=== PATIENT | male | born 1940 | race Caucasian/White ===

== ENCOUNTER 2017-02-21 10:54 | Inpatient (IN) | payer OTHER ==
[~2017-02-21] VITALS: Ht 177.8 cm; Wt 67.1 kg
[~2017-02-21 10:54] MED LIST: ASPIRIN81 M1; CLOPIDOGREL75 MG; SIMVASTATIN40 MG
[2017-02-21 12:49] LABS: BILIRUBIN,URINE NEGATIVE (NEGATIVE); KETONES,URINE NEGATIVE (NEGATIVE); LEUKOCYTE ESTERASE ,URINE TRACE (NEGATIVE); NITRITE,URINE NEGATIVE (NEGATIVE); URINE UROBILINOGEN 0.2 mg/dL (0.2 - 1)
[2017-02-21 12:53] LABS: CLARITY,URINE HAZY (CLEAR); COLOR,URINE YELLOW (YELLOW); PROTEIN,URINE DIPSTICK 1+ (NEGATIVE)
[2017-02-21 13:04] LABS: AMORPHOUS SEDIMENT,URINE MODERATE (FEW); BACTERIA,URINE RARE /HPF; EPITHELIAL CELLS,URINE MODERATE /LPF
[2017-02-21 13:05] LABS: CALCIUM OXALATE CRYSTALS,UR FEW (FEW); MUCUS,URINE FEW (RARE)
[2017-02-21 16:25] LABS: BASOPHILS % 0.5 % (0.0-1.0); EOSINOPHILS # (AUTO) 0.3 (0.0-0.4); EOSINOPHILS % 3.4 % (0.0-6.0); HEMATOCRIT 40.3 % (38.2-49.6); HEMOGLOBIN 12.9 g/dL (14.0-18.0); LYMPHOCYTES # (AUTO) 2.4 (1.0-3.2); LYMPHOCYTES % 31.3 % (18.0-39.1); MEAN CORPUSCULAR VOLUME 93.7 fL (81-99); MONOCYTES # (AUTO) 0.7 (0.2-0.8); MONOCYTES % 9.2 % (4.4-11.3); NEUTROPHILS # (AUTO) 4.3 (2.1-6.9); NEUTROPHILS % 55.3 % (38.7-80.0); PLATELET COUNT 246 x10e3/uL (140-360); RED CELL DISTRIBUTION WIDTH 14.6 % (11.7-14.4)
[2017-02-21 16:38] LABS: ALBUMIN 3.8 g/dL (3.5-5.0); ALBUMIN/GLOBULIN RATIO 0.9 (0.8-2.0); CALCIUM 9.5 mg/dL (8.4-10.2); CREATININE, SERUM 1.39 mg/dL (0.72-1.25)
[2017-02-21] MEDS: CEFTRIAXONE SOD 1 GM VIAL IV SCH (16:40)
--- NOTE | 2017-02-21 16:41 | Diagnostic Imaging Report ---
PROCEDURE: CT ABDOMEN AND PELVIS WITHOUT CONTRAST TECHNIQUE: The abdomen and pelvis were scanned utilizing a multidetector helical scanner from the diaphragm to the lesser trochanter after the oral administration of water. No IV contrast was administered per protocol. Coronal and sagittal multiplanar reformations were obtained. COMPARISON: None. INDICATIONS: CALCULUS OF KIDNEY, RIGHT FLANK PAIN FINDINGS: ABSENCE OF INTRAVENOUS CONTRAST DECREASES SENSITIVITY FOR DETECTION OF FOCAL LESIONS AND VASCULAR PATHOLOGY. LOWER THORAX: 6 mm noncalcified nodule in the left lower lobe (series 3, image 2). Wedge-shaped and linear densities with associated bronchiectasis and swirling of vessels in the anterior and posterior right lower lobe, likely reflecting confluent scarring. Multiple bilateral calcified pleural plaques. Atherosclerotic calcification of the coronary arteries, aortic valve and thoracic aorta. HEPATOBILIARY: No focal hepatic lesions. No biliary ductal dilatation. Gallbladder is unremarkable. SPLEEN: No splenomegaly. PANCREAS: No focal masses or ductal dilatation. ADRENALS: No adrenal nodules. KIDNEYS/URETERS: Left double-J internal ureteral stent in place. Left renal atrophy, measuring 6.8 cm in length, with marked cortical thinning. There is moderate to marked left hydronephrosis and mild to moderate proximal hydroureter. No left renal or ureteral calculi. Punctate, nonobstructing calculi in the interpolar region of the right kidney (series 3, image 70 and 72). Grouped, punctate and 1-2 mm nonobstructing calculi in the superior pole the right kidney (series 3, image 65 and coronal image 69). Punctate, nonobstructing calculi in the mid to inferior and inferior poles of the right kidney (series 3, images 81 and 88). No ureteral calculi, hydronephrosis, or obstruction. No right renal contour abnormalities. PELVIC ORGANS/BLADDER: No bladder calculi. No focal lesions. PERITONEUM / RETROPERITONEUM: No free air or fluid. LYMPH NODES: No lymphadenopathy. VESSELS: Atherosclerotic calcification of the abdominal aorta and iliac vessels. 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 GI TRACT: No bowel dilation or evidence of obstruction. BONES AND SOFT TISSUES: No aggressive lytic or sclerotic lesions. Degenerative changes in the lower thoracic and lumbosacral spine. Bilateral L5-S1 pars interarticularis defects. Facet hypertrophy. L4-L5 and L5-S1. IMPRESSION: 1. moderate to marked left hydronephrosis and mild to moderate proximal hydroureter despite the presence of a double-J internal ureteral stent, suggesting suboptimal function of the stent. No obstructing left ureteral or renal calculi. 2. Nonobstructing right renal calculi, as described. No right ureteral calculi, hydronephrosis, or obstruction. 3. Left renal atrophy with marked cortical thinning. 4. 6 mm noncalcified nodule in the left lower lobe. Recommend followup chest CT in 12 months to document stability. 5. Findings in the lungs consistent with prior asbestos exposure. Findings in the right lower lobe likely reflecting confluent scarring. Jono Plascencia M.D. Dictated by: Jono Plascencia M.D. on 02/21/2017 at 16:50 Electronically approved by: Jono Plascencia M.D. on 02/21/2017 at 16:50
[2017-02-21] MEDS ORDERED: ONDANSETRON HCL INJ 2 MG/ML VIAL IV PRN (17:15)
[2017-02-21] MEDS: SODIUM CHLORIDE 0.9% 1000ML 1,000 ML IV SCH (18:02)
[2017-02-21] MEDS ORDERED: MIDODRINE HCL5 MG PO (19:04)
[2017-02-21] MEDS ORDERED: SERTRALINE HCL50 MG PO (19:04)
[2017-02-21 20:55] VITALS: BP 133/79
[2017-02-21 23:50] VITALS: BP 119/69
[2017-02-22] MEDS: SODIUM CHLORIDE 0.9% 1000ML 1,000 ML IV SCH ×3 (04:10→21:12)
[2017-02-22 05:00] VITALS: BP 126/70
[2017-02-22 08:23] VITALS: BP 156/77
[2017-02-22 12:39] VITALS: BP 117/71
[2017-02-22] MEDS: CEFTRIAXONE SOD 1 GM VIAL IV SCH (14:50)
--- NOTE | 2017-02-22 16:08 | History and Physical ---
REASON FOR ADMISSION: Left-sided flank pain. HISTORY OF PRESENT ILLNESS: This is a 76-year-old male with history of kidney stones, also apparently had a history of a ureteral stent placed on the left side, but did not get it removed according to the patient. He also is very noncompliant, poor historian. He comes in with complaints of left-sided flank pain ongoing for the last several months. The patient had a procedure done back at [place] and it seems to be that he had a ureteral stent placed at that time about 3 or 4 months ago, according to the patient, when he did not follow up to have the ureteral stents removed. The patient now presents with this left-sided flank pain. Denies any fever at home. No chest pain, palpitations, dysuria or hematuria. The patient seen and evaluated at bedside on the medical floor, currently doing well with no other complaints. REVIEW OF SYSTEMS: Pertinent positive: Left-sided flank pain and dehydration. Pertinent negative: Denies any chest pain, palpitations, nausea, vomiting, diarrhea, dysuria, hematuria, frequency, urgency, lightheadedness, dizziness, abdominal pain, headache, shortness of breath or any other complaints. Rest of the 14-point review of systems is reviewed with the patient and are negative. ALLERGIES: NO KNOWN DRUG ALLERGIES. HOME MEDICATIONS: He takes Midodrine 5 mg daily, Zoloft 50 mg daily, Zocor 20 mg daily. PAST MEDICAL HISTORY: Dyslipidemia, chronic kidney stones with left ureteral stent placement, depression, chronic hypotension. PAST SURGICAL HISTORY: He has a ureteral stent placement. FAMILY HISTORY: Significant for hypertension and diabetes. SOCIAL HISTORY: No drugs, no alcohol. Does not smoke. Lives with family with good social support. LABORATORY DATA: White count of 7.7, hemoglobin 12.9, hematocrit 40, platelets 246,000. Chemistry: Sodium 140, potassium 4,chloride 107, bicarb 23, anion gap 14, BUN 13, creatinine 1.4, glucose 88, calcium 9.5. LFTs were normal. Albumin is 2.8. Urinalysis shows 6-10 WBCs. Leukocyte esterase, trace and negative nitrites. Microbiology: Urine culture is no growth today. Blood cultures are pending x2. IMAGING: CT of the abdomen and pelvis was consistent of moderate to marked left hydronephrosis to mild to moderate proximal hydroureter despite the presence of a double J internal ureteral stent. There is a non-obstructed right renal calculi. A 6-mm noncalcified nodule in the left lower lobe. He needs outpatient followup which I discussed this with him thoroughly as well. He verbalized understanding. PHYSICAL EXAMINATION VITAL SIGNS: Temperature 98.1, pulse 72, respiratory rate 17, blood pressure 59668, pulse oximetry 100% on room air. GENERAL: In no acute distress, alert and oriented x3, cooperative on examination. HEENT: Head is normocephalic, atraumatic. Eyes: Pupils equal, round and reactive to light bilaterally. Extraocular movements intact bilaterally. Throat with no evidence of erythema or exudates in the posterior pharynx. He has poor dentition. NECK: Supple with good range of motion. PULMONARY: Clear to auscultation bilaterally with no wheezing, no rales, no rhonchi and no crackles appreciated. CARDIOVASCULAR: Positive S1 and S2, no murmurs, rubs or gallops appreciated. ABDOMEN: Soft, nondistended, nontender on palpation. Bowel sounds were present. MUSCULOSKELETAL: Strength 5/5 throughout, no evidence of musculoskeletal deficit on exam. No weakness appreciated. NEUROLOGIC: Cranial nerves II-XII grossly intact. No evidence of neurological deficit on examination. SKIN: Intact. Warm to touch. Good capillary refill. EXTREMITIES: No edema. Good range of motion throughout. PSYCHIATRIC: Normal affect and mood. ASSESSMENT AND PLAN 1. Left-sided hydronephrosis with hydroureter, status post ureteral stent placement several months ago with history of kidney stones -- urology consulted, monitor urine cultures. IV antibiotics, possibly will need to have ureteral stents placed, but will depend on urology recommendations. 2. Urinary tract infection -- urine cultures, blood cultures and IV Rocephin. 3. Depression -- continue same home medications. 4. Dehydration -- continue with IV fluids. 5. Fluids, electrolytes, nutrients -- IV fluids. 6. Prophylaxis -- Lovenox. DISPOSITION: Inpatient, urology senior health consultant. DISCHARGE PLANNING: The patient will likely be here for several days due to holidays and will likely need to have some urological intervention surgically. Job#: [id number]
[2017-02-22 16:48] VITALS: BP 123/69
[2017-02-22 19:20] VITALS: BP 121/69
[2017-02-22 19:50] VITALS: BP 121/69
[2017-02-22] MEDS: SIMVASTATIN 20 MG TAB PO SCH (21:14)
[2017-02-23] VITALS (7 sets, daily range): BP systolic 94–124; BP diastolic 54–71
[2017-02-23 06:49] LABS: BASOPHILS % 0.6 % (0.0-1.0); EOSINOPHILS # (AUTO) 0.3 (0.0-0.4); EOSINOPHILS % 4.3 % (0.0-6.0); HEMATOCRIT 35.8 % (38.2-49.6); HEMOGLOBIN 11.8 g/dL (14.0-18.0); LYMPHOCYTES # (AUTO) 1.8 (1.0-3.2); LYMPHOCYTES % 28.3 % (18.0-39.1); MEAN CORPUSCULAR HEMOGLOBIN 30.4 pg (28-32); MEAN CORPUSCULAR VOLUME 92.3 fL (81-99); MONOCYTES # (AUTO) 0.6 (0.2-0.8); MONOCYTES % 9.8 % (4.4-11.3); NEUTROPHILS # (AUTO) 3.7 (2.1-6.9); NEUTROPHILS % 56.7 % (38.7-80.0); PLATELET COUNT 238 x10e3/uL (140-360); RED BLOOD COUNT 3.88 x10e6/uL (4.3-5.7); RED CELL DISTRIBUTION WIDTH 14.6 % (11.7-14.4)
[2017-02-23 07:10] LABS: ANION GAP 10.8 mmol/L (8-16); CALCIUM 8.8 mg/dL (8.4-10.2); CREATININE, SERUM 1.24 mg/dL (0.72-1.25); POTASSIUM 3.8 mmol/L (3.5-5.1)
[2017-02-23] MEDS ORDERED: SIMVASTATIN 40 MG TAB PO SCH (09:00)
[2017-02-23] MEDS: MIDODRINE HCL 5 MG TABLET PO SCH (09:00)
[2017-02-23] MEDS: SERTRALINE HCL 50 MG TAB PO SCH (09:41)
[2017-02-23] MEDS: HYDROMORPHONE 2MG/ML INJ IV PRN (09:46)
[2017-02-23] MEDS: SODIUM CHLORIDE 0.9% 1000ML 1,000 ML IV SCH ×2 (10:38→21:34)
[2017-02-23] MEDS: VANCOMYCIN 1GM/NS 250 ML 250 ML IV SCH (15:21)
--- NOTE | 2017-02-23 16:12 | Diagnostic Imaging Report ---
Abdomen/KUB INDICATION: Evaluate for encrustations. COMPARISON: CT abdomen/pelvis 02/21/2017. FINDINGS: Frontal image obtained at 1320 hours. The bowel gas pattern is unremarkable. There are no dilated bowel loops. A left ureteral stent is present with encrustation surrounding the distal loop within the bladder. There are no calcifications along the course of the stent. There is a solitary phlebolith along the right pelvic sidewall. The bones are diffusely demineralized. There are no focal osseous lesions. IMPRESSION: Encrustation surrounding the distal loop of the left ureteral stent. No evidence of calcification along the course of the stent to suggest ureteral calculus. Signed by: Dr. Alec Pandey MD on 02/23/2017 4:09 PM
[2017-02-23] MEDS: CEFTRIAXONE SOD 1 GM VIAL IV SCH (17:41)
[2017-02-23] MEDS: SIMVASTATIN 20 MG TAB PO SCH (21:22)
[2017-02-24] VITALS (8 sets, daily range): BP systolic 105–132; BP diastolic 68–77
[2017-02-24] MEDS: VANCOMYCIN 1GM/NS 250 ML 250 ML IV SCH ×2 (02:41→15:00)
[2017-02-24 08:23] LABS: BASOPHILS # (AUTO) 0.1 (0.0-0.1); BASOPHILS % 0.7 % (0.0-1.0); EOSINOPHILS # (AUTO) 0.3 (0.0-0.4); EOSINOPHILS % 4.4 % (0.0-6.0); HEMATOCRIT 35.5 % (38.2-49.6); HEMOGLOBIN 11.5 g/dL (14.0-18.0); LYMPHOCYTES # (AUTO) 1.7 (1.0-3.2); LYMPHOCYTES % 25.1 % (18.0-39.1); MEAN CORPUSCULAR HEMOGLOBIN 29.9 pg (28-32); MEAN CORPUSCULAR HGB CONC 32.4 g/dL (31-35); MEAN CORPUSCULAR VOLUME 92.4 fL (81-99); MONOCYTES # (AUTO) 0.7 (0.2-0.8); MONOCYTES % 9.5 % (4.4-11.3); NEUTROPHILS # (AUTO) 4.1 (2.1-6.9); NEUTROPHILS % 60.2 % (38.7-80.0); PLATELET COUNT 220 x10e3/uL (140-360); RED BLOOD COUNT 3.84 x10e6/uL (4.3-5.7); RED CELL DISTRIBUTION WIDTH 14.6 % (11.7-14.4)
[2017-02-24] MEDS: MIDODRINE HCL 5 MG TABLET PO SCH (08:42)
[2017-02-24] MEDS: SERTRALINE HCL 50 MG TAB PO SCH (08:42)
[2017-02-24 08:46] LABS: ANION GAP 10.5 mmol/L (8-16); BLOOD UREA NITROGEN 13 mg/dL (7-26); BUN/CREATININE RATIO 11 (6-25); CALCIUM 8.6 mg/dL (8.4-10.2); CARBON DIOXIDE 22 mmol/L (22-29); CHLORIDE 110 mmol/L (98-107); CREATININE, SERUM 1.15 mg/dL (0.72-1.25); EST GLOMERULAR FILTRATION RATE > 60 ML/MIN (60-); GLUCOSE 83 mg/dL (74-118); POTASSIUM 3.5 mmol/L (3.5-5.1); SODIUM 139 mmol/L (136-145)
[2017-02-24] MEDS: SODIUM CHLORIDE 0.9% 1000ML 1,000 ML IV SCH (10:54)
[2017-02-24] MEDS: CEFTRIAXONE SOD 1 GM VIAL IV SCH (15:00)
[2017-02-24] MEDS: SIMVASTATIN 20 MG TAB PO SCH (19:43)
[2017-02-24] MEDS: HYDROMORPHONE 2MG/ML INJ IV PRN (19:44)
[2017-02-25] VITALS: BP 121/74
[2017-02-25] MEDS: SODIUM CHLORIDE 0.9% 1000ML 1,000 ML IV SCH ×2 (02:25→13:34)
[2017-02-25] MEDS: VANCOMYCIN 1GM/NS 250 ML 250 ML IV SCH ×2 (02:48→15:00)
[2017-02-25 04:00] VITALS: BP 131/71
[2017-02-25] MEDS: SERTRALINE HCL 50 MG TAB PO SCH (07:50)
[2017-02-25] MEDS: MIDODRINE HCL 5 MG TABLET PO SCH (07:50)
[2017-02-25 08:00] VITALS: BP 112/69
[2017-02-25 12:00] VITALS: BP 117/68
[2017-02-25] MEDS ORDERED: PROPOFOL IV EMULSION 10 MG/ML 20 ML VIAL ONE (14:02)
[2017-02-25] MEDS ORDERED: KETOROLAC TROMETHAMINE 30 MG/ML VIAL ONE (14:02)
[2017-02-25] MEDS ORDERED: ACETAMINOPHEN 1000 MG/100 ML IV ONE (14:02)
[2017-02-25] MEDS ORDERED: SEVOFLURANE INHAL SOLN 250 ML PEN BTL ONE (14:02)
[2017-02-25] MEDS ORDERED: BELLADONNA/OPIUM 60 MG SUPP PR ONE (14:26)
[2017-02-25] MEDS ORDERED: IOPAMIDOL 610MG/1ML 300 MG/ML VIAL IV ONE (14:27)
[2017-02-25] MEDS: CEFTRIAXONE SOD 1 GM VIAL IV SCH (15:00)
[2017-02-25 17:30] VITALS: BP 122/75
[2017-02-25] MEDS: PHENAZOPYRIDINE HCL 100 MG TAB PO SCH (17:55)
[2017-02-25 20:00] VITALS: BP 134/89
[2017-02-25] MEDS: SIMVASTATIN 20 MG TAB PO SCH (21:06)
[2017-02-25] MEDS: HYDROMORPHONE 2MG/ML INJ IV PRN (21:07)
[2017-02-26] VITALS: BP 121/84
[2017-02-26] MEDS: SODIUM CHLORIDE 0.9% 1000ML 1,000 ML IV SCH ×2 (02:54→16:14)
[2017-02-26] MEDS: VANCOMYCIN 1GM/NS 250 ML 250 ML IV SCH (03:00)
[2017-02-26 04:00] VITALS: BP 115/64
[2017-02-26] MEDS: BELLADONNA/OPIUM 60 MG SUPP PR PRN ×2 (05:12→18:20)
[2017-02-26 06:00] LABS: HEMATOCRIT 35.7 % (38.2-49.6); HEMOGLOBIN 11.6 g/dL (14.0-18.0); MEAN CORPUSCULAR HEMOGLOBIN 30.5 pg (28-32); MEAN CORPUSCULAR HGB CONC 32.5 g/dL (31-35); MEAN CORPUSCULAR VOLUME 93.9 fL (81-99); RED CELL DISTRIBUTION WIDTH 14.6 % (11.7-14.4)
[2017-02-26 06:01] LABS: BASOPHILS % 0.4 % (0.0-1.0); EOSINOPHILS # (AUTO) 0.4 (0.0-0.4); EOSINOPHILS % 4.1 % (0.0-6.0); LYMPHOCYTES # (AUTO) 1.6 (1.0-3.2); LYMPHOCYTES % 19.3 % (18.0-39.1); MONOCYTES # (AUTO) 0.7 (0.2-0.8); MONOCYTES % 7.7 % (4.4-11.3); NEUTROPHILS # (AUTO) 5.8 (2.1-6.9); NEUTROPHILS % 68.3 % (38.7-80.0); PLATELET COUNT 199 x10e3/uL (140-360)
[2017-02-26 07:35] LABS: ANION GAP 10.8 mmol/L (8-16); CREATININE, SERUM 1.33 mg/dL (0.72-1.25); POTASSIUM 3.8 mmol/L (3.5-5.1)
[2017-02-26 07:36] LABS: CALCIUM 8.5 mg/dL (8.4-10.2)
[2017-02-26] MEDS: PHENAZOPYRIDINE HCL 100 MG TAB PO SCH ×3 (08:23→17:43)
[2017-02-26] MEDS: MIDODRINE HCL 5 MG TABLET PO SCH (08:23)
[2017-02-26] MEDS: SERTRALINE HCL 50 MG TAB PO SCH (08:23)
[2017-02-26 09:47] VITALS: BP 110/73
[2017-02-26 12:38] VITALS: BP 114/80
[2017-02-26] MEDS: HYDROMORPHONE 2MG/ML INJ IV PRN (13:25)
[2017-02-26] MEDS: CEFTRIAXONE SOD 1 GM VIAL IV SCH (15:20)
[2017-02-26 16:30] VITALS: BP 86/57
--- NOTE | 2017-02-26 19:47 | Diagnostic Imaging Report ---
Renal Scan Reason for exam: 76M with atrophic left kidney, history of renal calculi, left flank pain x several months, left hydronephrosis. Radiopharmaceutical: Tc-99m MAG3 9.3 mCi Report: After administration of the radiopharmaceutical, dynamic images of the kidneys were obtained through 40 minutes. A Pires catheter drained the bladder throughout the study. LEFT KIDNEY: No perfusion of renal parenchyma in or near the left renal bed is seen, however, a very small amount of tracer appears in what is identified as the left renal pelvis and subsequently is seen in the left ureter. The left ureter does not appear to be dilated. RIGHT KIDNEY: Perfusion is prompt. The kidney has a normal reniform shape although the kidney overall is decreased in size. Extraction of tracer from the blood pool is mildly decreased. Clearance of tracer from the renal parenchyma begins promptly but is not complete by the end of the study. The pelvicaliceal system is not dilated. No increased pooling of tracer is seen within the pelvicaliceal system. Drainage of tracer from the pelvicaliceal study is normal. No stasis of tracer is seen in the right ureter. DIFFERENTIAL RENAL FUNCTION: Left kidney 4% and right kidney 96% (normal 43-57%). Impression: 1. The left kidney has very little parenchyma but the remaining renal parenchyma appears to function normally. The function is too impaired to be able to adequately fill the pelvicalyceal system. 2. The right kidney shows evidence of medical renal disease. No hydronephrosis or obstruction is present. Signed by: Dr. Linda Zhang M.D. on 02/26/2017 7:44 PM
[2017-02-26 20:00] VITALS: BP 112/66
[2017-02-26] MEDS: SIMVASTATIN 20 MG TAB PO SCH (20:56)
[2017-02-27] VITALS: BP 118/71
[2017-02-27] MEDS: HYDROMORPHONE 2MG/ML INJ IV PRN ×2 (03:30→16:19)
[2017-02-27 04:00] VITALS: BP 106/55
[2017-02-27] MEDS: SODIUM CHLORIDE 0.9% 1000ML 1,000 ML IV SCH ×2 (07:13→09:10)
[2017-02-27 08:22] VITALS: BP 99/57
[2017-02-27] MEDS: PHENAZOPYRIDINE HCL 100 MG TAB PO SCH ×3 (09:10→17:30)
[2017-02-27] MEDS: MIDODRINE HCL 5 MG TABLET PO SCH ×2 (09:10→16:15)
[2017-02-27] MEDS: SERTRALINE HCL 50 MG TAB PO SCH (09:10)
[2017-02-27] MEDS: BELLADONNA/OPIUM 60 MG SUPP PR PRN (10:18)
[2017-02-27 11:52] VITALS: BP 107/68
[2017-02-27] MEDS: CEFTRIAXONE SOD 1 GM VIAL IV SCH (15:21)
[2017-02-27 16:27] VITALS: BP 118/66
[2017-02-27 19:57] VITALS: BP 105/63
[2017-02-27] MEDS: SIMVASTATIN 20 MG TAB PO SCH (21:42)
[2017-02-28 00:05] VITALS: BP 110/58
[2017-02-28 04:03] VITALS: BP 109/65
[2017-02-28 06:42] LABS: ANION GAP 11.7 mmol/L (8-16); BLOOD UREA NITROGEN 13 mg/dL (7-26); BUN/CREATININE RATIO 12 (6-25); CALCIUM 8.5 mg/dL (8.4-10.2); CARBON DIOXIDE 22 mmol/L (22-29); CHLORIDE 111 mmol/L (98-107); EST GLOMERULAR FILTRATION RATE > 60 ML/MIN (60-); GLUCOSE 78 mg/dL (74-118); POTASSIUM 3.7 mmol/L (3.5-5.1); SODIUM 141 mmol/L (136-145)
[2017-02-28] MEDS: MIDODRINE HCL 5 MG TABLET PO SCH ×2 (08:08→17:02)
[2017-02-28] MEDS: PHENAZOPYRIDINE HCL 100 MG TAB PO SCH ×3 (08:08→17:02)
[2017-02-28] MEDS: SERTRALINE HCL 50 MG TAB PO SCH (08:08)
[2017-02-28] MEDS: SODIUM CHLORIDE 0.9% 1000ML 1,000 ML IV SCH ×2 (08:14→13:44)
[2017-02-28 08:15] VITALS: BP 118/73
[2017-02-28] MEDS ORDERED: HYDROCODONE/APAP 5MG-325MG TAB PO PRN (11:15)
[2017-02-28 12:23] VITALS: BP 121/69
[2017-02-28 16:41] VITALS: BP 108/67
[2017-02-28] MEDS: CEFTRIAXONE SOD 1 GM VIAL IV SCH (17:02)
[2017-02-28 20:00] VITALS: BP 139/78
[2017-02-28] MEDS: SIMVASTATIN 20 MG TAB PO SCH (20:30)
[2017-03-01 00:35] VITALS: BP 127/89
[2017-03-01 04:20] VITALS: BP 119/76
[2017-03-01 06:27] LABS: BASOPHILS # (AUTO) 0.1 (0.0-0.1); BASOPHILS % 0.8 % (0.0-1.0); EOSINOPHILS # (AUTO) 0.4 (0.0-0.4); EOSINOPHILS % 5.9 % (0.0-6.0); HEMATOCRIT 33.7 % (38.2-49.6); HEMOGLOBIN 11.3 g/dL (14.0-18.0); LYMPHOCYTES # (AUTO) 1.6 (1.0-3.2); LYMPHOCYTES % 24.8 % (18.0-39.1); MEAN CORPUSCULAR HEMOGLOBIN 30.6 pg (28-32); MEAN CORPUSCULAR HGB CONC 33.5 g/dL (31-35); MEAN CORPUSCULAR VOLUME 91.3 fL (81-99); MONOCYTES # (AUTO) 0.6 (0.2-0.8); MONOCYTES % 9.5 % (4.4-11.3); NEUTROPHILS # (AUTO) 3.9 (2.1-6.9); NEUTROPHILS % 58.8 % (38.7-80.0); PLATELET COUNT 177 x10e3/uL (140-360); RED BLOOD COUNT 3.69 x10e6/uL (4.3-5.7); RED CELL DISTRIBUTION WIDTH 14.3 % (11.7-14.4)
[2017-03-01 06:58] LABS: ANION GAP 11.4 mmol/L (8-16); BLOOD UREA NITROGEN 11 mg/dL (7-26); BUN/CREATININE RATIO 10 (6-25); CALCIUM 8.9 mg/dL (8.4-10.2); CARBON DIOXIDE 23 mmol/L (22-29); CHLORIDE 111 mmol/L (98-107); EST GLOMERULAR FILTRATION RATE > 60 ML/MIN (60-); GLUCOSE 85 mg/dL (74-118); POTASSIUM 3.4 mmol/L (3.5-5.1); SODIUM 142 mmol/L (136-145)
[2017-03-01 08:00] VITALS: BP_SYST 118; BP_DIAS 70; BP_DIAS 71
[2017-03-01] MEDS: PHENAZOPYRIDINE HCL 100 MG TAB PO SCH (09:31)
[2017-03-01] MEDS: SERTRALINE HCL 50 MG TAB PO SCH (09:31)
[2017-03-01] MEDS: MIDODRINE HCL 5 MG TABLET PO SCH (09:31)
[2017-03-01] MEDS ORDERED: POTASSIUM CHLORIDE 20 MEQ TAB CR PO NR (10:00)
[2017-03-01] MEDS: SODIUM CHLORIDE 0.9% 1000ML 1,000 ML IV SCH (10:54)
--- NOTE | 2017-03-01 14:31 | Discharge Summary ---
FINAL DISCHARGE DIAGNOSES 1. Left-sided hydronephrosis with left ureteral stent removal and exchange with cystoscopy with cystolitholapaxy with laser performed. 2. Urinary tract infection. 3. Bacteremia, contaminate. 4. Depression. CONSULTANTS: Urology. VITAL SIGNS: Temperature is 98.1, pulse 61, respiratory rate is 18, blood pressure 119/76, pulse ox 96% on room air. LAB FINDINGS: White count is 6.6, hemoglobin 11.3, hematocrit is 34, platelets of 177. Chemistry: Sodium 142, potassium 3.4, chloride 111, bicarb 23, anion gap 11, BUN is 11, creatinine is 1.1, glucose is 85, calcium 8.9. Urinalysis was negative. MICROBIOLOGY: Initial blood cultures showed gram-positive rods, which is a contaminate and also the second culture was coagulase-negative staph which is a contaminate. Repeat blood cultures were negative times 2. Urine cultures were negative times 2. IMAGING STUDIES: CT abdomen and pelvis showed moderate left hydronephrosis with [id number]-ei-lawholtg proximal hydroureter despite the presence of a double-J ureteral stent. He also had a 6 mm noncalcified nodule in the left lower lobe of the lung. Patient was advised to follow up as an outpatient. He verbalized understanding to follow up with his PCP. Abdominal x-ray showed encrustation surrounding the distal loop of the left ureteral stent. No evidence of calcification along the course of the stent to suggest ureteral calculus and then renal scan nuclear medicine, the left kidney has very little parenchyma, but the remaining renal parenchyma appears to show functional normally. The function is too impaired to be unable to adequately fill the pelvicalyceal system. HOSPITAL COURSE: This is a 76-year-old male who has a left ureteral stent placed 3 months ago at a different facility who comes in with complaints of left-sided flank pain. Imaging studies were consistent with left-sided hydronephrosis, in which urology was consulted. Patient had a status post cystoscopy with change of the left stent with cystolitholapaxy with laser performed by Dr. Ulloa. Patient remained to do very well. His blood cultures showed contaminate initially. Repeat blood cultures were negative and urine cultures were negative. Patient continued on IV antibiotics. Patient's pain was well controlled and he was urinating well. He will be discharged on oral pain control as well as some antibiotics for 5 more days as well as Pyridium. Patient did extremely well with no other complaints. Patient is to follow up with urology in 2 to 3 weeks. On the day of discharge, vital signs were stable, labs reviewed and stable. Patient seen and evaluated and examined thoroughly on the day of discharge with no other complaints. Patient verbalized understanding and agrees with the plan of care to follow up accordingly as an outpatient with the urologist. DISCHARGE MEDICATIONS: See medicine reconciliation form includin. Tylenol No. 3 one tab every 6 hours as needed for pain, 20 tabs. 2. Midodrine 5 mg 1 tab p.o. b.i.d., 60 tabs. 3. Cipro 500 mg 1 tab p.o. b.i.d. for 5 days. 4. Pyridium 100 mg 1 tab p.o. q. daily. DISPOSITION: To home. CONDITION: Stable. DIET: Heart healthy. FOLLOWUP: With urology in 2 to 3 weeks in their office and PCP in 1 week. In the event of any worsening symptom, patient advised to come back to the ED for further evaluation. Discharge summary took greater than 35 minutes. NATHANIEL ULLOA MD Job#: [id number] DEVORAH
--- NOTE | 2017-05-09 01:00 | Operative Report ---
DATE OF PROCEDURE: February 25, 2017 PREOPERATIVE DIAGNOSES: 1. Left ureteral stricture. 2. Left hydronephrosis due to stricture. 3. Large bladder stone. 4. Left indwelling ureteral stent. 5. Urinary tract infection. 6. Microhematuria. OPERATIONS PERFORMED: 1. Cystourethroscopy with cystolitholapaxy of large stone (separate procedure performed for diagnosis of stone). 2. Cystourethroscopy with complicated removal of left indwelling ureteral stent (separate procedure performed for the diagnosis of the stent). 3. Cystourethroscopy with bilateral ureteral catheterization and retrograde ureteropyelography (separate procedure performed for the evaluation of the microhematuria and infection). 4. Interpretation of retrograde ureteropyelography. 5. Supervision of fluoroscopy, no radiologist present. 6. Cystourethroscopy with dilation of left ureteral stricture (separate procedure performed for the diagnosis of stricture). 7. Radiological services for supervision and interpretation of stricture dilation. 8. Cystourethroscopy with insertion of left indwelling ureteral stent (separate procedure performed to relieve the hydronephrosis). ANESTHESIA: General. COMPLICATIONS: None. CLINICAL SUMMARY: Please refer to the chart. More specifically, the patient has a chronic stent due to ureteral stricture, and the stent is overdue for change. He has a bladder stone noted encasing the distal portion of the stent on radiographic study preoperatively. OPERATIVE PROCEDURE IN DETAIL: Informed consent was verified. Nathan Peña was properly identified, taken to the operating room and placed on the cystoscopy table in supine position. Anesthesia was uneventfully begun. The patient was then carefully and gently repositioned in the dorsal lithotomy position with all pressure points well padded. His genitalia were prepared and draped in usual sterile fashion. A 22.5-Malawian cystoscope sheath with the visual obturator in place was atraumatically inserted in patient's urethra. It was guided down the unremarkable distal urethra past a normal sphincteric region through the prostate bed, which was wide open, status post an excellent transurethral resection of the prostate. We entered the patient's bladder where there was a very large stone that was formed around the indwelling stent. A Holmium laser lithotripsy was then performed. This was a rather extensive procedure on rather extensive stone. We eventually able to remove all necessary stone material off of the stent, and this allowed us to then place a guidewire alongside the stent and guided to the level of the patient's bladder. The stent was then grasped, was completely removed, and then discarded. Double-lumen ureteral catheter was then inserted over the guidewire and guided to the level of the proximal ureter. As we did this, we dilated the patient's ureteral stricture. We obtained a clear hydronephrotic drip. Contrast was injected on the left hand side, and the dilator was removed. With cystoscopic and fluoroscopic guidance, a left-sided indwelling ureteral stent was then placed. It was coiled in patient's kidney as well as patient's bladder. The retaining suture was cut short. A ureteral catheter was used to cannulate the right ureter and retrograde ureteropyelograms were performed. Interpretation of retrograde ureteropyelography. Contrast was instilled in retrograde fashion bilaterally. Right side was relatively unremarkable without any tumors, stones, nor any obstruction. The left side exhibited hydroureteronephrosis that was significant down to a rather dense stricture at the junction between the middle and distal thirds of the ureter. The new stent was in good position, coiled in patient's kidney as well as in patient's bladder at the end of the case. Patient's bladder was drained. The cystoscope was withdrawn. A belladonna and opium suppository was placed revealing a 30 gram prostate that is smooth, nonfluctuant, and without any nodules. Patient was then uneventfully reversed from anesthesia and taken to recovery room in stable condition. Plans will be to follow the patient throughout his hospital course, and of course I will monitor him and evaluate him for renal function on the left hand side, a nephrectomy may be in order. Job#: [id number]
== END 2017-03-01 15:57 | disposition home health service (06) | DRG 661 ==
LOC: ER 10:54 → ERHOLD 17:23 → IMCU 20:09 → OBSVTOIN 02-23 14:20 → MED/SURG2 02-23 18:05
PROVIDERS: ADMIT Internal Medicine; ATTEND Internal Medicine
PROC: 0TP980Z Removal of Drainage Device from Ureter, Via Natural or Artificial Opening Endoscopic (ICD-10-PCS; 2017-02-25)
PROC: 0T778DZ Dilation of Left Ureter with Intraluminal Device, Via Natural or Artificial Opening Endoscopic (ICD-10-PCS; 2017-02-25)
PROC: BT1F1ZZ Fluoroscopy of Left Kidney, Ureter and Bladder using Low Osmolar Contrast (ICD-10-PCS; 2017-02-25)
PROC: BT1D1ZZ Fluoroscopy of Right Kidney, Ureter and Bladder using Low Osmolar Contrast (ICD-10-PCS; 2017-02-25)
PROC: 0TCB8ZZ Extirpation of Matter from Bladder, Via Natural or Artificial Opening Endoscopic (ICD-10-PCS; principal; 2017-02-25 16:00)
DX: N13.6 Pyonephrosis (principal); N17.9 Acute kidney failure, unspecified; I95.89 Other hypotension; E86.0 Dehydration; R91.1 Solitary pulmonary nodule; Z91.19 Patient's noncompliance with other medical treatment and regimen; F32.9 Major depressive disorder, single episode, unspecified; N18.9 Chronic kidney disease, unspecified; N21.0 Calculus in bladder; Z85.46 Personal history of malignant neoplasm of prostate; Z46.6 Encounter for fitting and adjustment of urinary device; E78.5 Hyperlipidemia, unspecified
CPT/HCPCS: 36415; 74000; 74176; 74420; 78707; 80048; 80053; 80202; 81001; 85025; 87040; 87071; 87086; 87205; 88300; 93005; 96374; 99284; A9562; C2617; G0378; J0696; J1885; J2405; J3370; J7030

== ENCOUNTER 2017-03-30 15:55 | Inpatient (IN) | payer MEDICARE, OTHER ==
[~2017-03-30] VITALS: Ht 177.8 cm; Wt 70.3 kg
[~2017-03-30 15:55] MED LIST changes: +MIDODRINE HCL5 MG PO; +SERTRALINE HCL50 MG PO
--- OUTSIDE RECORDS SUMMARY | 2017-03-30 15:58 | XMS REPORT ---
Author Author [facility] Address Unknown Phone Unavailable Care Team Providers Care Manager Packaging Name Role Phone NATHANIEL ULLOA Unavailable Unavailable Problems This patient has no known problems. Allergies, Adverse Reactions, Alerts This patient has no known allergies or adverse reactions. Medications This patient has no known medications. Results Test Description Test Time Test Comments Text Results Atomic Results Result Comments RENAL SCAN W/FLOW FUNCTION [place] [address] Patient Name: RANDY KHAN MR #: [id number] : 1940 Age/Sex: 76/M Req #: [id number] [facility] Physician: NATHANIEL ULLOA MD Ordered by: AISHA CUNNINGHAM MD Report #: [id number] Location: [facility] Room/Bed: [facility] __ Procedure: [id number] NM/RENAL SCAN W/FLOW FUNCTION Exam Date: 02/26/17 Exam Time: 1530 REPORT STATUS: Signed Renal Scan Reason for exam: 76M with atrophic left kidney, history of renal calculi, left flank pain x several months, left hydronephrosis. Radiopharmaceutical: Tc-99m MAG3 9.3 mCi Report: After administration of the radiopharmaceutical, dynamic images of the kidneys were obtained through 40 minutes. A Pires catheter drained the bladder throughout the study. LEFT KIDNEY: No perfusion of renal parenchyma in or near the left renal bed is seen, however, a very small amount of tracer appears in what is identified as the left renal pelvis and subsequently is seen in the left ureter. The left ureter does not appear to be dilated. RIGHT KIDNEY: Perfusion is prompt. The kidney has a normal reniform shape although the kidney overall is decreased in size. Extraction of tracer from the blood pool is mildly decreased. Clearance of tracer from the renal parenchyma begins promptly but is not complete by the end of the study. The pelvicaliceal system is not dilated. No increased pooling of tracer is seen within the pelvicaliceal system. Drainage of tracer from the pelvicaliceal study is normal. No stasis of tracer is seen in the right ureter. DIFFERENTIAL RENAL FUNCTION: Left kidney 4% and right kidney 96% (normal 43-57 %). Impression: 1. The left kidney has very little parenchyma but the remaining renal parenchyma appears to function normally. The function is too impaired to be able to adequately fill the pelvicalyceal system. 2. The right kidney shows evidence of medical renal disease. No hydronephrosis or obstruction is present. Signed by: Dr. Linda Zhang M.D. on 02/26 7:44 PM Dictated By: LINDA ZHANG MD 43 Transcribed By: JACKIE on 02/26/171943 COPY TO: AISHA CUNNINGHAM MD [facility] ([place] [address] Patient Name: RANDY KHAN MR #: [id number] : 1940 Age/Sex: 76/M Req #: [id number] Adm Physician: NATHANIEL ULLOA MD Ordered by: AISHA CUNNINGHAM MD Report #: [id number] Location: [facility] Room/Bed: [place] [address] __ Procedure: [id number] DX/ABDOMEN-1VIEW (KUB) Exam Date: Exam Time: 1540 REPORT STATUS: Signed Abdomen/KUB INDICATION: Evaluate for encrustations. COMPARISON: CT abdomen/pelvis 02/21/2017. FINDINGS: Frontal image obtained at 1320 hours. The bowel gas pattern is unremarkable. There are no dilated bowel loops. A left ureteral stent is present with encrustation surrounding the distal loop within the bladder. There are no calcifications along the course of the stent. There is a solitary phlebolith along the right pelvic sidewall. The bones are diffusely demineralized. There are no focal osseous lesions. IMPRESSION: Encrustation surrounding the distal loop of the left ureteral stent. No evidence of calcification along the course of the stent to suggest ureteral calculus. Signed by: Dr. Elly Pnadey MD on 02/23/2017 4:09 PM Dictated By: ELLY PANDEY MD 08 Transcribed By : JACKIE on 02/23/171608 COPY TO: AISHA CUNNINGHAM MD CT ABDOMEN/PELVIS WO [place] [address] Patient Name: RANDY KHAN MR #: [id number] : 1940 Age/Sex: 76/M Req #: [id number] Adm Physician: Ordered by: YVETTE GALLARDO MD Report #: [id number] Location: ER Room/Bed: Procedure: [id number] CT/CT ABDOMEN/PELVIS WO Exam Date: 02/21/17 Exam Time: 1548 REPORT STATUS: Signed PROCEDURE: CT ABDOMEN AND PELVIS WITHOUT CONTRAST TECHNIQUE: The abdomen and pelvis were scanned utilizing a multidetector helical scanner from the diaphragm to the lesser trochanter after the oral administration of water. No IV contrast was administered per protocol. Coronal and sagittal multiplanar reformations were obtained. COMPARISON: None. INDICATIONS: CALCULUS OF KIDNEY , RIGHT FLANK PAIN FINDINGS: ABSENCE OF INTRAVENOUS CONTRAST DECREASES SENSITIVITY FOR DETECTION OF FOCAL LESIONS AND VASCULAR PATHOLOGY. LOWER THORAX: 6 mm noncalcified nodule in the left lower lobe (series 3, image 2). Wedge-shaped and linear densities with associated bronchiectasis and swirling of vessels in the anterior and posterior right lower lobe, likely reflecting confluent scarring. Multiple bilateral calcified pleural plaques. Atherosclerotic calcification of the coronary arteries, aortic valve and thoracic aorta. HEPATOBILIARY: No focal hepatic lesions. No biliary ductal dilatation. Gallbladder is unremarkable. SPLEEN: No splenomegaly. PANCREAS: No focal masses or ductal dilatation. ADRENALS: No adrenal nodules. KIDNEYS/URETERS: Left double-J internal ureteral stent in place. Left renal atrophy, measuring 6.8 cm in length, with marked cortical thinning. There is moderate to marked left hydronephrosis and mild to moderate proximal hydroureter. No left renal or ureteral calculi. Punctate, nonobstructing calculi in the interpolar region of the right kidney (series 3 , image 70 and 72). Grouped, punctate and 1-2 mm nonobstructing calculi in the superior pole the right kidney (series 3, image 65 and coronal image 69) . Punctate, nonobstructing calculi in the mid to inferior and inferior poles of the right kidney (series 3, images 81 and 88). No ureteral calculi, hydronephrosis, or obstruction. No right renal contour abnormalities. PELVIC ORGANS/BLADDER: No bladder calculi. No focal lesions. PERITONEUM / RETROPERITONEUM: No free air or fluid. LYMPH NODES: No lymphadenopathy. VESSELS: Atherosclerotic calcification of the abdominal aorta and iliac vessels. 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 GI TRACT: No bowel dilation or evidence of obstruction. BONES AND SOFT TISSUES: No aggressive lytic or sclerotic lesions. Degenerative changes in the lower thoracic and lumbosacral spine. Bilateral L5-S1 pars interarticularis defects. Facet hypertrophy. L4-L5 and L5-S1. IMPRESSION: 1. moderate to marked left hydronephrosis and mild to moderate proximal hydroureter despite the presence of a double-J internal ureteral stent, suggesting suboptimal function of the stent. No obstructing left ureteral or renal calculi. 2. Nonobstructing right renal calculi, as described. No right ureteral calculi, hydronephrosis, or obstruction. 3. Left renal atrophy with marked cortical thinning. 4. 6 mm noncalcified nodule in the left lower lobe. Recommend followup chest CT in 12 months to document stability. 5. Findings in the lungs consistent with prior asbestos exposure. Findings in the right lower lobe likely reflecting confluent scarring. Isaiah Plascencia M.D. Dictated by: Isaiah Plascencia M.D. on 02/21/2017 at 16:50 Electronically approved by: Isaiah Plascencia M.D. on 02/21/2017 at 16:50 Dictated By: ISAIAH PLASCENCIA MD 165 Transcribed By: MARIA E on 02/21/17 165 COPY TO: YVETTE GALLARDO MD
[2017-03-30 16:49] LABS: BILIRUBIN,URINE 1+ (NEGATIVE); CLARITY,URINE HAZY (CLEAR); COLOR,URINE YELLOW (YELLOW); KETONES,URINE NEGATIVE (NEGATIVE); LEUKOCYTE ESTERASE ,URINE 2+ (NEGATIVE); NITRITE,URINE NEGATIVE (NEGATIVE); PROTEIN,URINE DIPSTICK 2+ (NEGATIVE); URINE UROBILINOGEN 1 mg/dL (0.2 - 1)
[2017-03-30 17:12] LABS: BACTERIA,URINE FEW /HPF; EPITHELIAL CELLS,URINE FEW /LPF
--- NOTE | 2017-03-30 17:31 | Diagnostic Imaging Report ---
EXAMINATION: Chest, CHEST SINGLE (PORTABLE) INDICATION: Chest pain COMPARISON: None FINDINGS: LINES: None. Heart: Normal cardiac silhouette. Vascular: The pulmonary vasculature is within normal limits. Atherosclerotic calcifications of the aortic arch. Mediastinum: No mediastinal, hilar, or axillary mass or lymphadenopathy. Lungs: No parenchymal mass. No focal consolidation. 1.2 cm nodular density projects over the right midlung region. Pleura: No pleural effusion. No pneumothorax. Bones: No acute osseous abnormality. Degenerative changes of the thoracic spine. Soft tissues: Normal. Impression: No acute radiographic abnormality. Nodular density in the right midlung region is indeterminate. A CT of the chest may provide additional information for further characterization. Signed by: Dr. Bolivar Kirk M.D. on 03/30/2017 5:27 PM
[2017-03-30 18:46] LABS: BASOPHILS # (AUTO) 0.1 (0.0-0.1); BASOPHILS % 0.6 % (0.0-1.0); EOSINOPHILS # (AUTO) 0.4 (0.0-0.4); EOSINOPHILS % 5.1 % (0.0-6.0); HEMATOCRIT 43.7 % (38.2-49.6); HEMOGLOBIN 14.2 g/dL (14.0-18.0); LYMPHOCYTES # (AUTO) 2.6 (1.0-3.2); LYMPHOCYTES % 32.9 % (18.0-39.1); MEAN CORPUSCULAR HEMOGLOBIN 30.9 pg (28-32); MEAN CORPUSCULAR HGB CONC 32.5 g/dL (31-35); MONOCYTES # (AUTO) 0.8 (0.2-0.8); MONOCYTES % 10.2 % (4.4-11.3); NEUTROPHILS % 50.9 % (38.7-80.0); PLATELET COUNT 179 x10e3/uL (140-360); RED CELL DISTRIBUTION WIDTH 14.6 % (11.7-14.4)
[2017-03-30 19:38] LABS: ALANINE AMINOTRANSFERASE 18 IU/L (0-55); ALBUMIN 3.9 g/dL (3.5-5.0); ALBUMIN/GLOBULIN RATIO 1.1 (0.8-2.0); ALKALINE PHOSPHATASE 83 IU/L (40-150); ANION GAP 14.8 mmol/L (8-16); BLOOD UREA NITROGEN 15 mg/dL (7-26); BUN/CREATININE RATIO 12 (6-25); CALCIUM 9.1 mg/dL (8.4-10.2); CARBON DIOXIDE 23 mmol/L (22-29); CHLORIDE 108 mmol/L (98-107); CREATINE KINASE 77 IU/L (30-200); CREATININE, SERUM 1.28 mg/dL (0.72-1.25); EST GLOMERULAR FILTRATION RATE 54 ML/MIN (60-); GLUCOSE 88 mg/dL (74-118); INR 0.91; MAGNESIUM 2.6 MG/DL (1.3-2.1); PARTIAL THROMBOPLASTIN TIME 32.6 seconds (23.8-35.5); POTASSIUM 4.8 mmol/L (3.5-5.1); PROTHROMBIN TIME 12.7 seconds (11.9-14.5); SODIUM 141 mmol/L (136-145)
[2017-03-30] MEDS ORDERED: SODIUM CHLORIDE 0.9% 1000ML 1,000 ML IV STA (19:51)
[2017-03-30] MEDS ORDERED: PIPER-TAZ 3.375 GM 50 ML IV SCH (20:00)
[2017-03-30] MEDS ORDERED: NITROGLYCERIN 0.4 MG SUBL SL PRN (20:30)
[2017-03-30] MEDS ORDERED: ONDANSETRON HCL INJ 2 MG/ML VIAL IV PRN (20:30)
--- NOTE | 2017-03-30 21:03 | Diagnostic Imaging Report ---
EXAM: CT CHEST W ORDER DATE: 03/30/2017 7:51 PM Time stamp on exam: 2023 INDICATION: Chest pain, left side COMPARISON: None TECHNIQUE: Multidetector CT scanning of the chest was performed. Coronal and sagittal multiplanar reformations were obtained. PE protocol performed. IV Contrast: 100 cc Isovue 370 CTDIvol has been reviewed. It is below the limits set by the Radiation Protocol Committee (RPC). FINDINGS: LUNGS AND AIRWAYS: The trachea and major bronchi are patent. Bibasilar moderate bronchiectasis. Right lower lobe scarring. No consolidations or pulmonary edema. Left lower lobe noncalcified 8 mm pulmonary nodule. PLEURA: Bilateral calcified and noncalcified pleural plaques. HEART, MEDIASTINUM, VESSELS: The heart is within normal size limits. No abnormal pericardial effusion. Mild calcified at this chronic changes of the thoracic aorta without aneurysm. No mediastinal mass or lymphadenopathy. No evidence of a pulmonary embolism. UPPER ABDOMEN: Fatty replacement of the pancreas. Atrophic left kidney. MUSCULOSKELETAL: No acute findings. IMPRESSION: 1. No evidence of a pulmonary embolism. 2. Left lower lobe pulmonary nodule measuring 8 mm. A follow-up CT of the chest without IV contrast, low-dose protocol in 6-12 months is recommended. 3. Bilateral calcified pleural plaques. Signed by: Dr. Nissa Casillas M.D. on 03/30/2017 9:00 PM
[2017-03-30] MEDS: PIPER-TAZ 3.375 GM 50 ML IV SCH (21:34)
[2017-03-30 22:42] VITALS: BP 135/76
[2017-03-30 22:47] VITALS: BP 135/76
[2017-03-31] VITALS (8 sets, daily range): BP systolic 85–147; BP diastolic 58–82
[2017-03-31] MEDS ORDERED: SODIUM CHLORIDE 0.9% 250ML 250 ML ONE (04:35)
[2017-03-31] MEDS: PIPER-TAZ 3.375 GM 50 ML IV SCH ×4 (04:39→21:27)
[2017-03-31 07:56] LABS: BASOPHILS % 0.6 % (0.0-1.0); EOSINOPHILS # (AUTO) 0.3 (0.0-0.4); EOSINOPHILS % 4.6 % (0.0-6.0); HEMATOCRIT 40.2 % (38.2-49.6); HEMOGLOBIN 12.9 g/dL (14.0-18.0); LYMPHOCYTES # (AUTO) 1.8 (1.0-3.2); LYMPHOCYTES % 25.7 % (18.0-39.1); MEAN CORPUSCULAR HEMOGLOBIN 30.2 pg (28-32); MEAN CORPUSCULAR HGB CONC 32.1 g/dL (31-35); MEAN CORPUSCULAR VOLUME 94.1 fL (81-99); MONOCYTES # (AUTO) 0.7 (0.2-0.8); MONOCYTES % 9.6 % (4.4-11.3); NEUTROPHILS # (AUTO) 4.1 (2.1-6.9); NEUTROPHILS % 59.4 % (38.7-80.0); PLATELET COUNT 177 x10e3/uL (140-360); RED BLOOD COUNT 4.27 x10e6/uL (4.3-5.7); RED CELL DISTRIBUTION WIDTH 14.2 % (11.7-14.4)
[2017-03-31 08:36] LABS: ALBUMIN 3.4 g/dL (3.5-5.0); ALBUMIN/GLOBULIN RATIO 0.9 (0.8-2.0); ANION GAP 10.8 mmol/L (8-16); CALCIUM 8.6 mg/dL (8.4-10.2); CHOL/HDL RATIO 4.5 (3.9-4.7); CREATININE, SERUM 1.27 mg/dL (0.72-1.25); POTASSIUM 3.8 mmol/L (3.5-5.1)
[2017-03-31] MEDS ORDERED: SODIUM CHLORIDE 0.9% 50ML 50 ML ONE (08:55)
[2017-03-31] MEDS ORDERED: IOPAMIDOL 370 MG/ML 200 ML INFUS..BTL INJ ONE (08:56)
[2017-03-31] MEDS: FAMOTIDINE 20 MG/2 ML VIAL IV SCH ×2 (09:01→21:27)
[2017-03-31] MEDS: ASPIRIN 81 MG ENTERIC COATED PO SCH (09:01)
[2017-03-31 09:05] LABS: CREATINE KINASE MB 1.6 ng/mL (0.00-5.00)
[2017-03-31] MEDS ORDERED: ACETAMINOPHEN 325 MG TAB PO PRN (11:15)
[2017-03-31] MEDS: SODIUM CHLORIDE 0.9% 1000ML 1,000 ML IV SCH (12:02)
--- NOTE | 2017-03-31 12:19 | Diagnostic Imaging Report ---
EXAM: CT Abdomen and Pelvis WITHOUT contrast INDICATION: Abdominal pain COMPARISON: CT chest 03/30/2017 TECHNIQUE: Abdomen and pelvis were scanned utilizing a multidetector helical scanner from the lung base to the pubic symphysis. Coronal and sagittal reformations were obtained. The lack of intravenous contrast limits the evaluation of the solid organs, vasculature, and possible lymphadenopathy. Protocol: General survey without contrast IV CONTRAST: No intravenous contrast was administered as per physician request. ORAL CONTRAST: None. COMPLICATIONS: None. RADIATION DOSE: Total Exam DLP: 305.4 mGy*cm. CTDIvol has been reviewed. It is below the limits set by the Radiation Protocol Committee (RPC). FINDINGS: LINES: None. Lower thorax: No parenchymal abnormality. No pneumothorax. No pleural effusion. Bilateral pleural calcifications. Bilateral lower lobe bronchiectasis. Bibasilar atelectasis. Liver: No focal mass. No hepatomegaly. Normal parenchyma. Gallbladder: No gallstones. No gallbladder distention. Biliary tree: No intrahepatic duct dilation. No extrahepatic duct dilation. Spleen: No splenomegaly. No focal mass. Pancreas: No focal mass. Normal pancreatic duct. No peripancreatic inflammatory changes. Partial fatty replacement of the pancreas. Kidneys: The left kidney is atrophic. A left ureteral stent is in proper position, with the proximal coil positioned within the renal pelvis and the distal coil positioned within the urinary bladder. Interval development of left hydroureter and left hydronephrosis. Excreted contrast is present in the left collecting system. No obstructing calculi. No right hydronephrosis. No cysts. No perinephric soft tissue inflammatory changes. Adrenal glands: No adrenal nodules.. Bladder: Normal urinary bladder. Pelvic organs: Normal. GI: No bowel wall thickening. No air-fluid levels. The stomach and small bowel are normal. The colon is normal. Normal appendix. A moderate amount of retained feces limits intraluminal evaluation of the colon. Peritoneum/retroperitoneum: No pneumoperitoneum. No ascites. No drainable fluid collection. Lymph nodes: No lymphadenopathy. . Vessels: No focal abnormality. Atherosclerotic calcifications. Infrarenal abdominal aneurysm, measuring 3.0 cm in greatest transverse diameter, series 3 image 88. 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 Limited evaluation. Bones: No focal abnormality. Degenerative changes of the lumbar spine. Soft tissues: No focal abnormality. IMPRESSION: Interval development of left hydroureter and hydronephrosis with excreted contrast in the left collecting system. Left ureteral stent in proper position. Infrarenal abdominal aortic aneurysm. Aneurysm of the right common iliac artery. Signed by: Dr. Bolivar Kirk M.D. on 03/31/2017 12:15 PM
--- NOTE | 2017-03-31 14:14 | History and Physical ---
REASON FOR ADMISSION: Questionable left flank pain and possible chest pain. HISTORY OF PRESENT ILLNESS: A 76-year-old male, very poor historian, was admitted back in January having a left-sided hydronephrosis which urology performed a procedure and removed the ureteral stent and had it placed. He comes into the ED with possible complaints of left-sided flank pain as well as left-sided chest pain. Once again, the patient is a very poor historian. He reports that he had this left flank pain for the last 3 or 4 days. Denies any dysuria, hematuria or frequency. In relation to his chest pain, he said it is episodic on and off, currently denies any chest pain. He reports when he came into the ED he did not have chest pain. He denies any palpitations, nausea, vomiting or any fever at home. The patient is seen and evaluated at bedside on the medical floor, currently denies any chest pain or any flank pain. REVIEW OF SYSTEMS: Pertinent positives: Left-sided flank pain, also chest pain. Pertinent negatives: Denies any palpitations, nausea, vomiting, diarrhea, dysuria, hematuria, frequency, urgency, lightheadedness, dizziness, abdominal pain, headache, shortness of breath or any other complaints. The rest of the 14-point review of systems have been reviewed with the patient and are negative. ALLERGIES: NO KNOWN DRUG ALLERGIES. HOME MEDICATIONS: Midodrine 5 mg daily, Zoloft 50 mg daily, Zocor 20 mg daily. PAST MEDICAL HISTORY: Dyslipidemia, chronic kidney disease with stones, left ureteral stent placement, depression, chronic hypotension. PAST SURGICAL HISTORY: Has a ureteral stent placement. FAMILY HISTORY: Significant for hypertension and diabetes. SOCIAL HISTORY: No drugs, no alcohol, does not smoke. Lives with family with good social support. PHYSICAL EXAMINATION VITAL SIGNS: Temperature 96.7, pulse 68, respiratory rate 12, blood pressure 128/77, pulse oximetry 97% on 2 liters nasal cannula. LABORATORY DATA: White count 6.9, hemoglobin 12.9, hematocrit 40, platelets 177,000. Coagulations are normal. Chemistry: Sodium 141, potassium 3.8, chloride 111, bicarb 23, anion gap 10, BUN 12, creatinine 1.2. Glucose is 81. Calcium is 8.6. The rest of his labs are normal. LDL is 103. Urinalysis: WBCs 11-20, 2+ leukocyte esterase, 3+ blood seen. Serology: Influenza was negative. IMAGING: Chest x-ray was negative. CT with PE protocol showed no evidence of pulmonary embolism. He does have an 8 mm nodule and he needs outpatient followup in 6-12 months. PHYSICAL EXAMINATION GENERAL: Not in acute distress. Alert and oriented x3. Cooperative on exam. HEENT: Head is normocephalic, atraumatic. Eyes: Pupils equal, round and reactive to light bilaterally. Extraocular movements intact bilaterally. Throat with no evidence of erythema or exudates in the posterior pharynx. He has poor dentition. NECK: Supple with good range of motion. PULMONARY: Clear to auscultation bilaterally with no wheezing, no rales, no rhonchi, no crackles appreciated. CARDIOVASCULAR: Positive S1 and S2, no murmurs, rubs or gallops appreciated. ABDOMEN: Soft, nondistended, nontender on palpation. Bowel sounds were present. MUSCULOSKELETAL: Strength 5/5 throughout, no evidence of musculoskeletal deficit on exam. No weakness appreciated. NEUROLOGIC: Cranial nerves II-XII grossly intact. No evidence of neurological deficit on examination. SKIN: Intact. Warm to touch. Good capillary refill. EXTREMITIES: No edema. Good range of motion throughout. PSYCHIATRIC: Normal affect and mood. ASSESSMENT AND PLAN 1. Chest pain, likely atypical in nature 0 -- EKG shows no acute findings. No cardiac . Troponin x2 is negative. Most likely it will be negative. 2. Left-sided flank pain -- has a history of hydronephrosis on the left side, status post ureteral stent exchange in January of 2017, get CT of the abdomen and pelvis to rule out any kind of obstruction. IV antibiotics. 3. Possible urinary tract infection -- pending urine cultures, IV antibiotics Zosyn. 4. Dehydration -- the patient looks significantly dry. Will start on normal saline at 100 mL per hour. 5. Prophylaxis -- Lovenox. 6. Fluids, electrolytes, nutrients -- IV fluids. 7. Disposition -- observation. If imaging studies are negative and the patient looks well hydrated, likely discharge home tomorrow. Job#: [id number]
[2017-03-31] MEDS: ENOXAPARIN SOD INJ 40 MG/0.4 ML SYR SC SCH (16:35)
[2017-03-31] MEDS ORDERED: ASPIRIN 81 MG CHEW TAB PO ONE (17:00)
[2017-03-31 17:08] LABS: CREATINE KINASE MB 1.4 ng/mL (0.00-5.00)
[2017-04-01] MEDS: PIPER-TAZ 3.375 GM 50 ML IV SCH ×4 (02:56→21:43)
[2017-04-01 05:42] VITALS: BP 127/73
[2017-04-01] MEDS: SODIUM CHLORIDE 0.9% 1000ML 1,000 ML IV SCH ×3 (05:51→18:22)
[2017-04-01 06:59] LABS: BASOPHILS % 0.6 % (0.0-1.0); EOSINOPHILS # (AUTO) 0.5 (0.0-0.4); EOSINOPHILS % 6.8 % (0.0-6.0); HEMATOCRIT 37.4 % (38.2-49.6); HEMOGLOBIN 11.9 g/dL (14.0-18.0); LYMPHOCYTES # (AUTO) 1.9 (1.0-3.2); MEAN CORPUSCULAR HEMOGLOBIN 30.1 pg (28-32); MEAN CORPUSCULAR HGB CONC 31.8 g/dL (31-35); MEAN CORPUSCULAR VOLUME 94.7 fL (81-99); MONOCYTES # (AUTO) 0.7 (0.2-0.8); MONOCYTES % 9.4 % (4.4-11.3); NEUTROPHILS # (AUTO) 3.9 (2.1-6.9); NEUTROPHILS % 56.1 % (38.7-80.0); PLATELET COUNT 160 x10e3/uL (140-360); RED BLOOD COUNT 3.95 x10e6/uL (4.3-5.7); RED CELL DISTRIBUTION WIDTH 14.3 % (11.7-14.4)
[2017-04-01 07:28] LABS: ANION GAP 12.8 mmol/L (8-16); CALCIUM 8.8 mg/dL (8.4-10.2); CREATININE, SERUM 1.36 mg/dL (0.72-1.25); POTASSIUM 3.8 mmol/L (3.5-5.1)
[2017-04-01 08:01] VITALS: BP 142/88
[2017-04-01] MEDS: ASPIRIN 81 MG ENTERIC COATED PO SCH (09:00)
[2017-04-01] MEDS: SERTRALINE HCL 50 MG TAB PO SCH (09:00)
[2017-04-01] MEDS: MIDODRINE HCL 5 MG TABLET PO SCH (09:00)
[2017-04-01] MEDS: FAMOTIDINE 20 MG/2 ML VIAL IV SCH ×2 (09:00→21:43)
[2017-04-01 12:06] VITALS: BP 134/82
[2017-04-01 15:36] VITALS: BP 137/81
[2017-04-01] MEDS: ENOXAPARIN SOD INJ 40 MG/0.4 ML SYR SC SCH (17:00)
--- NOTE | 2017-04-01 18:48 | Diagnostic Imaging Report ---
This report includes an Addendum and supersedes previous reports for this exam. PROCEDURE:CTA ABD/PELVIS WOW COMPARISON:None. INDICATIONS:ANEURYSM, PT STATE PREV STENT TECHNIQUE: Multi-detector CT technology with Dose Reduction was employed. Images were obtained after the administration of 100 mL of Isovue-370 intravenously. For optimization of anatomic evaluation, multiplanar and volume rendering reconstructions were performed. Advanced 3-D off-line postprocessing were performed on a dedicated stand-alone workstation under the direct supervision of the interpreting physician. DLP: 282.00 mGy-cm FINDINGS: Aortic Measurements at the level of the: Diaphragmatic hiatus: 2.6 cm (series 3, image 34) Celiac axis: 2.6 cm (image 42) Superior Mesenteric Artery: 2.6 cm (image 50) Renal Arteries: 2.6 cm (image 54) Above the iliac bifurcation: 3.3 cm (image 91) There is a moderate amount of mixed calcified and noncalcified plaque throughout the abdominal aorta. There is a partially thrombosed infrarenal abdominal aortic aneurysm which measures up to 3.3 cm in dimension. A thin intimal flap is visualized across aortic lumen (series 3, image 86) consistent with a short segment dissection, likely chronic. The aneurysm extends into the right common iliac artery which is partially thrombosed and measures up to 2.6 cm (series 4 155). The celiac, superior mesenteric, inferior mesenteric, and renal arteries are patent. The left renal artery is diminutive with respect to the right but there is no significant focal stenosis at the origin of the left renal artery. Pelvic vessels: Right common iliac artery: The infrarenal aortic aneurysm extends into the right common iliac artery which is partially thrombosed and measures up to 2.6 cm (series 4, image 55). The right external iliac arteries appear patent. Left common iliac artery: Left common iliac artery appears relatively normal, measuring 1.1 cm in caliber. Left external and internal iliac arteries are patent. Right lower extremity: The visualized portion of the right common femoral artery contains calcified atherosclerotic plaque, but no focal narrowing. Left lower extremity: The visualized portion of the left common femoral artery contains calcified atherosclerotic plaque, but no focal narrowing. Abdominal and Pelvic soft-tissues and organs: Lung bases: Subpleural scarring with traction bronchiectasis in the lung bases. There are calcified pleural plaques which indicate prior asbestos exposure. Liver: No focal hepatic masses. Biliary: No radiopaque gallstones or gallbladder wall thickening. No biliary ductal dilatation. Spleen: No splenomegaly. Pancreas: No focal pancreatic masses. No pancreatic ductal dilatation. Adrenal Glands: No adrenal nodules. Kidneys: The left kidney is atrophic with chronic hydronephrosis. There is a left femoral stent with its proximal tip in the left renal pelvis and its distal tip in the bladder. Small nonobstructing stones within the right kidney measure up to 3 mm. No solid masses or hydronephrosis on the right. GI: No abnormal wall thickening or distention. The appendix is not visualized Peritoneum/Retroperitoneum: No free fluid or free intraperitoneal air. Reproductive organs: The prostate is not visualized and may be absent. Lymph Nodes: There has been a pelvic lymph node dissection. No lymphadenopathy. Musculoskeletal: Multilevel degenerative changes of the thoracic and lumbar spine. Bilateral L5 pars defects. CONCLUSION: Partially thrombosed infrarenal abdominal aortic aneurysm which measures up to 3.3 cm. There is a small focal dissection within the aneurysm, likely chronic. The abdominal aortic aneurysm extends into the right common iliac artery which is also partially thrombosed and measures up to 2.6 cm. Dictated by: Jaguar Broderick M.D. on 04/01/2017 at 18:58 Electronically approved by: Jaguar Broderick M.D. on 04/01/2017 at 18:58 ADDENDUM: Findings were discussed with [place], the patient's nurse, at 6:54 pm on 04/01/2017. Dictated by: Jaguar Broderick M.D. on 04/01/2017 at 19:04 Electronically approved by: Jaguar Broderick M.D. on 04/01/2017 at 19:04
[2017-04-01] MEDS ORDERED: IOPAMIDOL 370 MG/ML 200 ML INFUS..BTL INJ ONE (20:47)
[2017-04-01] MEDS ORDERED: SODIUM CHLORIDE 0.9% 50ML 50 ML ONE (20:47)
[2017-04-02] VITALS (7 sets, daily range): BP systolic 112–166; BP diastolic 64–93
[2017-04-02] MEDS: SODIUM CHLORIDE 0.9% 1000ML 1,000 ML IV SCH ×2 (02:10→12:42)
[2017-04-02] MEDS: PIPER-TAZ 3.375 GM 50 ML IV SCH ×4 (02:13→23:15)
[2017-04-02] MEDS: FAMOTIDINE 20 MG/2 ML VIAL IV SCH ×2 (10:49→22:00)
[2017-04-02] MEDS: MIDODRINE HCL 5 MG TABLET PO SCH (10:49)
[2017-04-02] MEDS: SERTRALINE HCL 50 MG TAB PO SCH (10:49)
[2017-04-02] MEDS: ASPIRIN 81 MG ENTERIC COATED PO SCH (10:49)
[2017-04-02] MEDS: ENOXAPARIN SOD INJ 40 MG/0.4 ML SYR SC SCH (17:47)
[2017-04-03] VITALS (8 sets, daily range): BP systolic 109–150; BP diastolic 69–83
[2017-04-03] MEDS: PIPER-TAZ 3.375 GM 50 ML IV SCH ×4 (02:33→21:00)
[2017-04-03] MEDS: SODIUM CHLORIDE 0.9% 1000ML 1,000 ML IV SCH ×2 (02:33→13:44)
--- NOTE | 2017-04-03 09:53 | Consultation ---
DATE OF CONSULTATION: April 03, 2017 CARDIOLOGY CONSULTATION REASON FOR CONSULTATION: Cardiac clearance and chest pain. CONSULTING PHYSICIAN: Dr. Ulloa HPI: This is a 76-year-old male that presented with chest discomfort. According to him, he started having central chest pain that goes to the left that has been going on for the last 3 days. He described the chest pain as a constant pressure that comes and goes on a scale of 5/10 with no radiation that he came in for evaluation. He was also found to have left hydronephrosis. He has a history of CAD and stent in the past. He denies any palpitation, any shortness of breath, any diaphoresis, or headache. Troponin was negative. EKG showed no S/T abnormalities. PAST MEDICAL HISTORY: CVA, prostate cancer, kidney stone, UTI, dementia, hyperlipidemia, CAD, depression, hypotension. PAST SURGICAL HISTORY: Prostatectomy, cardiac stents times 2, and left urethral stent that was removed in January and placed a new one. FAMILY HISTORY: Noncontributory. SOCIAL HISTORY: No smoking. No drinking. He lives at home with the . MEDICATIONS: See med list. ALLERGIES: HE IS NOT ALLERGIC TO ANY MEDICATION. REVIEW OF SYSTEMS: Negative except as mentioned above. PHYSICAL EXAMINATION VITAL SIGNS: Temperature 97, heart rate 62, blood pressure 109/69, respirations 18, oxygen saturation 98% on room air. GENERAL: He is awake, alert and oriented times 3. HEENT: Mucous membrane moist. NECK: Supple. LUNGS: Bilateral clear to auscultation. CARDIOVASCULAR: S1 and S2 present. ABDOMEN: Soft. NEUROLOGICAL: He is able to move all extremities. EXTREMITIES: Bilateral lower extremities with no edema. LABS: Sodium 142, potassium 3.8, chloride 109, CO2 24, BUN 11, creatinine 1.36, glucose 84. White blood cells 6.93, hemoglobin 11.9, hematocrit 37.4, and platelets 160,000. PT 12.7, PTT 32.6 [address] 0[address]91. His CT of the abdomen showed a 3.3 cm infrarenal abdominal aortic aneurysm that is partially thrombosed. IMPRESSION 1. Chest pain. 2. Infrarenal aortic abdominal aneurysm measuring 3.3 cm. 3. Left hydronephrosis. 4. History of coronary artery disease with stent. 5. History of low blood pressure. 6. History of dementia. 7. Kidney stone. 8. Hyperlipidemia. 9. History of cerebrovascular accident. ASSESSMENT AND PLAN: Will go ahead and get an echocardiogram to assess the left ventricular and the valve function. He already had a vascular surgeon consulted for the thrombosed triple-A. His blood pressure is stable. He is already on midodrine. If no surgical intervention is planned, he can follow up in the clinic as an outpatient for possible stress test. Further cardiac workup pending clinical course. Thank you for this consultation. DICTATED BY LORA KENNEDY NP Job#: [id number] ANNAMARIE
[2017-04-03] MEDS: MIDODRINE HCL 5 MG TABLET PO SCH (10:48)
[2017-04-03] MEDS: ASPIRIN 81 MG ENTERIC COATED PO SCH (10:48)
[2017-04-03] MEDS: SERTRALINE HCL 50 MG TAB PO SCH (10:48)
[2017-04-03] MEDS: FAMOTIDINE 20 MG/2 ML VIAL IV SCH (10:48)
[2017-04-03] MEDS: ENOXAPARIN SOD INJ 40 MG/0.4 ML SYR SC SCH (16:00)
[2017-04-03] MEDS: FAMOTIDINE 20 MG TAB PO SCH (21:39)
[2017-04-04] VITALS: BP 109/71
[2017-04-04] MEDS: PIPER-TAZ 3.375 GM 50 ML IV SCH ×2 (02:22→10:35)
[2017-04-04] MEDS: SODIUM CHLORIDE 0.9% 1000ML 1,000 ML IV SCH (03:04)
[2017-04-04 04:00] VITALS: BP 125/76
[2017-04-04 08:51] VITALS: BP 128/78
--- NOTE | 2017-04-04 09:54 | Discharge Summary ---
FINAL DISCHARGE DIAGNOSES: 1. Atypical chest pain. 2. Abdominal aortic aneurysm measuring at 3.3 cm and a right common iliac aneurysm partially thrombosed. 3. Chronic left hydronephrosis with stent placement. 4. Hypertension. 5. Coronary artery disease. 6. Medical noncompliance. 7. Dementia. CONSULTANTS: Vascular surgery, urology, cardiology. VITAL SIGNS: Temperature is 96.2, pulse 63, respiratory rate is 20, blood pressure 125/76, pulse ox 95% on room air. LAB FINDINGS: Showed white count 6.9, hemoglobin 11.9, hematocrit is 37, platelets of 160,000. Coagulations are normal. Chemistry: Sodium 142, potassium 3.8, chloride 109, bicarb 24, anion gap of 12, BUN is 11, creatinine is 1.3, glucose 84, calcium 8.8. LFTs were normal. Troponins were negative x3. LDL was 103. Urinalysis showed 11 to 20 WBCs, 11 to 20 RBCs, 2+ leukocyte esterase. MICROBIOLOGY: Showed urine culture to be negative. IMAGING STUDIES: Chest x-ray showed no acute radiographic abnormality. Nodular disease in the right mid lung region is indeterminate. I had suggested to the patient for outpatient followup with his primary care physician for further evaluation and close monitoring. He verbalized understanding. Patient also had a CT angiogram of the chest that showed no evidence of pulmonary embolism, a left lower lobe pulmonary nodule measuring 8 mm. I recommend 6 to 12 months recommended followup. This was discussed with the patient and daughter also at bedside, which they verbalized understanding to follow up accordingly. CT abdomen and pelvis without contrast showed interval development of left hydroureter and hydronephrosis, excreted contrast in the left collecting system. Has a left ureteral stent in a proper position. Infrarenal abdominal aortic aneurysm. Aneurysm of the right common iliac artery was seen also. CT angiogram of the abdomen and pelvis was performed with partially thrombosed infrarenal abdominal aortic aneurysm, which measures up to 3.3 cm. There is a small focal dissection within the aneurysm likely chronic. Abdominal aortic aneurysm extends to the right common iliac artery, which is also partially thrombosed and measures 2.6 cm. HOSPITAL COURSE: This is a 76-year-old male, poor historian, has underlying dementia, comes into the ED with complaints of chest pain, likely atypical in nature. Patient had CT abdomen and pelvis that showed a left-sided hydronephrosis with ureteral stents. Urology was consulted, felt this was likely chronic from his prior procedures, and no further intervention was needed. Initial thought that the patient may have needed a left nephrectomy in which cardiology was consulted. Then, urology determined that he does not need a nephrectomy at this time. Imaging studies, on CT imaging, patient was found to have incidental right common iliac aneurysm as well as an abdominal aortic aneurysm in which a CT angiogram was performed. CT angiogram results are above in which we vascular surgery consult. Per cardiology and vascular surgery, they recommend just outpatient followup and no intervention was needed at this time. Patient has been cleared by all consultants for discharge home. On the day of discharge, vital signs were stable, labs reviewed and stable. Patient was seen and evaluated and examined thoroughly on the day of discharge with no other complaints. Patient verbalized understanding and agrees with plan of care to follow up accordingly as an outpatient with the appropriate consultants as described above. MEDICATIONS: See med reconciliation form. DISPOSITION: To home. CONDITION: Stable. FOLLOWUP: Patient is to follow up with vascular surgery and cardiology in 1 to 2 weeks to further evaluate his aneurysms, PCP in 1 week, urology which was very important in 1 to 2 weeks and also his PCP in which he needs to follow up on the pulmonary nodule in 6 to 12 months according to radiology recommendation. In the event of any worsening symptoms, patient advised to come back to the ED for further evaluation. Discharge summary took greater than 35 minutes. NATHANIEL ULLOA MD Job#: [id number]
[2017-04-04] MEDS: ASPIRIN 81 MG ENTERIC COATED PO SCH (10:35)
[2017-04-04] MEDS: FAMOTIDINE 20 MG TAB PO SCH (10:35)
[2017-04-04] MEDS: MIDODRINE HCL 5 MG TABLET PO SCH (10:35)
[2017-04-04] MEDS: SERTRALINE HCL 50 MG TAB PO SCH (10:35)
[2017-04-04 12:15] VITALS: BP 138/77
--- NOTE | 2017-04-04 20:13 | Consultation ---
DATE OF CONSULTATION: April 03, 2017 REASON FOR CONSULT: Possible abdominal aortic aneurysm; requested by Dr. Korey Chavez. HISTORY: I saw and evaluated this patient on April 03, 2017. He is a very nice 76-year-old man who is somewhat forgetful and a poor historian, but was admitted with back and chest pain. In January, he had a left-sided hydronephrosis for which urology apparently removed a ureteral stent and replaced it. He presented to the emergency room with left-sided flank pain, as well as left-sided chest discomfort. Apparently, the flank pain had been there for about 3-[address] scan was obtained. This was interpreted as possibly showing a 3.3 cm abdominal aortic aneurysm with a right iliac dilatation to approximately 2.68 cm. Surgical evaluation is now requested. The patient has occasional back pain that seems to be related to arthritis. He has no history of a palpable pulsatile mass. No other vascular surgery history. PAST MEDICAL HISTORY: Positive for hyperlipidemia, chronic renal insufficiency with stones, positive for left ureteral stent placement, positive for depression, and chronic hypotension. PAST SURGICAL HISTORY: Positive for ureteral stenting. FAMILY HISTORY: Positive for hypertension and diabetes. Negative for early disease from coronary artery disease. SOCIAL HISTORY: Negative for smoking, alcohol or IV drugs. He lives with his family. MEDICATIONS: Include midodrine, Zoloft and Zocor. ALLERGIES: NONE KNOWN. REVIEW OF SYSTEMS GENERAL: Negative for fatigue and malaise. NEUROLOGIC: Negative for focal weakness in the extremities or dysarthria. HEENT: Positive for decreased vision and decreased hearing. CARDIAC: Positive for some chest pressure and chest discomfort. PULMONARY: Negative for shortness of breath or wheezing. GI: No constipation or diarrhea. : Negative for hematuria or dysuria. ENDOCRINE: Negative for polyuria or polydipsia. VASCULAR: Negative for claudication, but positive for CT scan documented mass. SKIN: Negative for rash or itching. HEMATOLOGIC: Negative for clotting or bleeding. INFECTIOUS: Negative for fevers or sweating. PSYCHIATRIC: Negative for depression or anxiety. PHYSICAL EXAMINATION GENERAL: A well-developed, forgetful man sitting up in bed. VITAL SIGNS: Blood pressure 130/70, pulse 80 and regular, respirations 16 and unlabored. NECK: Supple and nontender. No JVD. CARDIAC: Shows a regular rate and rhythm. There is a normal S1 and S2. There is no S4, S3, rub, or murmur. LUNGS: Scattered crackles but otherwise clear to auscultation. ABDOMEN: Scaphoid and benign. Good bowel sounds. No palpable abdominal mass. No palpable pulsatile mass. BACK: No CVA tenderness. No muscular spasm. EXTREMITIES: No cyanosis, clubbing or edema. VASCULAR: Carotids 2+/2+ bilaterally. Femorals and radials are 2+/2+ bilaterally. Posterior tibialis pulses 1+/2+ bilaterally. No varicose veins. MUSCULOSKELETAL: Full range of motion at all joints. No joint swelling. NEUROLOGIC: Cranial nerves II-XII intact. Sensation intact to light touch and pinprick bilaterally. Strength is 5/5 in all extremities. LYMPHATICS: Negative for cervical, clavicular, femoral adenopathy. LABORATORY AND IMAGING: CT scan is reviewed and shows a 3.3 cm abdominal aortic aneurysm, as well as a 2.68 dilatation of the right iliac artery. It does not appear that there is any stent in place. There may be a limited dissection of the abdominal aorta. IMPRESSION: Dilated aorta that does not appear to be frankly aneurysmal. The right external iliac artery may be sufficiently dilated to classify as an aneurysm. I will review these studies before making further recommendations. Thank you very much for asking me to see this nice man. Job#: [id number] ANNAMARIE
== END 2017-04-04 15:37 | disposition home or self-care (01) | DRG 300 ==
LOC: ER 15:55 → ERHOLD 21:54 → IMCU 21:56 → OBSVTOIN 04-02 09:58 → MED/SURG 04-02 19:53
PROVIDERS: ADMIT Internal Medicine; ATTEND Internal Medicine
DX: I71.4 Abdominal aortic aneurysm, without rupture (principal); N13.6 Pyonephrosis; I72.3 Aneurysm of iliac artery; F03.90 Unspecified dementia, unspecified severity, without behavioral disturbance, psychotic disturbance, mood disturbance, and anxiety; I25.10 Atherosclerotic heart disease of native coronary artery without angina pectoris; F32.9 Major depressive disorder, single episode, unspecified; Z95.5 Presence of coronary angioplasty implant and graft; Z91.19 Patient's noncompliance with other medical treatment and regimen; D64.9 Anemia, unspecified; I12.9 Hypertensive chronic kidney disease with stage 1 through stage 4 chronic kidney disease, or unspecified chronic kidney disease; N18.9 Chronic kidney disease, unspecified; E86.0 Dehydration; Z86.73 Personal history of transient ischemic attack (TIA), and cerebral infarction without residual deficits
CPT/HCPCS: 36415; 71045; 71260; 74174; 74176; 80048; 80053; 80061; 81001; 82550; 82553; 83735; 84484; 85025; 85610; 85730; 87086; 87400; 93005; 93306; 99284; G0378; J1650; J2543; J7030; J7050; Q9967

== ENCOUNTER 2017-07-02 10:22 | Inpatient (IN) | payer OTHER ==
[~2017-07-02] VITALS: Ht 177.8 cm; Wt 73.9 kg
--- OUTSIDE RECORDS SUMMARY | 2017-07-02 10:24 | XMS REPORT | Continuity of Care Document ---
Author Author [facility] Organization [facility] Address [address] [place] [address] Phone Unavailable Care Team Providers Care Collections Technician Name Role Phone RUBA MALDONADO MD PCP Insurance Providers Guarantor Randy Khan Address [address] [place] [address] Payer [facility] [email or web address] Policy Number [id number] Subscriber's Name Randy Khan Relationship 18 Self / Same As Patient Group Number [id number] Group Name [employer] - Medicare Advantage Divis Effective Date 17 Advance Directives Directive Response Recorded Date/Time Does the patient have an advance directive? No 03/31/17 5:07am If yes, is advance directive on file with [facility]? No 03/31/17 5:07am If not on file with [facility] will patient provide a copy? No 03/31/17 5:07am Do you have a Directive to Physician? No 03/30/17 6:50pm Do you have a Medical Power of Loan Processing Supervisor? No 03/30/17 6:50pm Do you have an out of hospital Do Not Resuscitate Order? No 03/30/17 6:50pm Do you have any special needs we should be aware of? No 03/30/17 6:50pm Do you have a support person here with you today? Yes 03/30/17 6:50pm Did patient receive Notice of Privacy Practices? Yes 03/30/17 6:50pm Did patient receive patient rights and responsibilities? Yes 03/30/17 6:50pm Problems Medical Problem Onset Date Status Chest pain Unknown UTI (urinary tract infection) Unknown UTI (urinary tract infection) Unknown Medications Current Home Medications Medication Dose Units Route Directions Days Qty Instructions Start Date Midodrine Hcl 5 Mg Tablet 5 Mg Oral Daily Sertraline Hcl 50 Mg Tablet 50 Mg Oral Daily 30 Tab Simvastatin 40 Mg Tablet Daily Past Home Medications Medication Directions Ordered Status Aspirin 81 Mg Tablet, Daily Discontinued Clopidogrel Bisulfate (Clopidogrel) 75 Mg Tablet, Daily Discontinued Social History Social History Problem Response Recorded Date/Time Onset Date Status Hx Psychiatric Problems No 03/31/2017 5:07am Not Applicable Not Applicable Smoking Status Start Date Stop Date Unknown if ever smoked Hospital Discharge Instructions No hospital discharge instruction information available. Plan of Care Discharge Date 04/04/17 3:37pm Disposition HOME, SELF-CARE Instructions/Education Provided Urinary Tract Infection - Men Prescriptions See Medication Section Referrals KARLA BATISTA MD (Cardiology) Order Date: 1 Week Entered Date: 04/04/2017 1:15pm Address: [address] [place] [address] RUBA MALDONADO MD (Urology) Order Date: 1-2 Weeks Entered Date: 04/04/2017 1:15pm Address: [address] [place] [address] Additional Instructions/Education DIET TOLERATED ACTIVITY TOLERATED FOLLOW UP WITH DR MCKOY OFFICE FOR STRESS TEST IN ONE WEEK FOLLOW UP WITH DR MALDONADO'S OFFICE IN 2 WEEKS TAKE ALL MEDICATIONS PERSCRIBED Functional Status Query Response Date Recorded Assistive Devices Standard Walker March 31, 2017 6:16am Ambulation Ability Maximum Assistance March 31, 2017 6:16am Toileting Ability Minimum Assistance April 03, 2017 6:50pm Allergies, Adverse Reactions, Alerts No known allergies. Immunizations No immunization information available. Vital Signs Acute Vital Signs Vital Response Date/Time Temperature (Fahrenheit) 96.9 degrees F (97.6 - 99.5) 04/04/2017 12:15pm Pulse Pulse Rate (adult) 60 bpm (60 - 90) 04/04/2017 12:15pm Respiratory Rate 20 bpm (12 - 24) 04/04/2017 12:15pm Blood Pressure 138/77 mm Hg 04/04/2017 12:15pm Height 5 ft 10 in 03/30/2017 4:12pm Weight 155.05 lb 04/02/2017 8:47am Body Mass Index 22.2 kg/m^2 04/02/2017 8:47am Results Laboratory Results Test Name Result Units Flags Reference Collection Date/Time Result Date/ Time Comments Urine Calcium Oxalate Crystals FEW FEW 02/21/2017 11:52am 02/21/2017 1:06pm Urine Amorphous Sediment MODERATE H FEW 02/21/2017 11:52am 02/21/2017 1:06pm Urine Mucus FEW H RARE 02/21/2017 11:52am 02/21/2017 1:06pm Vancomycin Level Trough 17.6 ug/mL *H 5.0-10.0 02/25/2017 2:00am 2017 2:37am Results called to PARVEEN SANCHEZ RN at 0237 on 02/25/17 by Yary Santizo. RB OK. White Blood Count 6.93 x10e3/uL 4.8-10.8 04/01/2017 6:20am 04/01/2017 7 :04am Red Blood Count 3.95 x10e6/uL L 4.3-5.7 04/01/2017 6:20am 04/01/2017 7: 04am Hemoglobin 11.9 g/dL L 14.0-18.0 04/01/2017 6:20am 04/01/2017 7:04am Hematocrit 37.4 % L 38.2-49.6 04/01/2017 6:20am 04/01/2017 7:04am Mean Corpuscular Volume 94.7 fL 81-99 04/01/2017 6:20am 04/01/2017 7: 04am Mean Corpuscular Hemoglobin 30.1 pg 28-32 04/01/2017 6:20am 04/01/2017 7:04am Mean Corpuscular Hemoglobin Concent 31.8 g/dL 31-35 04/01/2017 6:04/01/2017 7:04am Red Cell Distribution Width 14.3 % 11.7-14.4 04/01/2017 6:2017 7:04am Platelet Count 160 x10e3/uL 140-360 04/01/2017 6:04/01/2017 7: 04am Neutrophils (%) (Auto) 56.1 % 38.7-80.0 04/01/2017 6:04/01/2017 7: 04am Lymphocytes (%) (Auto) 27.0 % 18.0-39.1 04/01/2017 6:04/01/2017 7: 04am Monocytes (%) (Auto) 9.4 % 4.4-11.3 04/01/2017 6:04/01/2017 7: 04am Eosinophils (%) (Auto) 6.8 % H 0.0-6.0 04/01/2017 6:04/01/2017 7: 04am Basophils (%) (Auto) 0.6 % 0.0-1.0 04/01/2017 6:04/01/2017 7:04am IM GRANULOCYTES % 0.1 % 0.0-1.0 04/01/2017 6:04/01/2017 7:04am Neutrophils # (Auto) 3.9 2.1-6.9 04/01/2017 6:04/01/2017 7:04am Lymphocytes # (Auto) 1.9 1.0-3.2 04/01/2017 6:04/01/2017 7:04am Monocytes # (Auto) 0.7 0.2-0.8 04/01/2017 6:04/01/2017 7:04am Eosinophils # (Auto) 0.5 H 0.0-0.4 04/01/2017 6:04/01/2017 7: 04am Basophils # (Auto) 0.0 0.0-0.1 04/01/2017 6:04/01/2017 7:04am Absolute Immature Granulocyte (auto 0.01 x10e3/uL 0-0.1 04/01/2017 6: 04/01/2017 7:04am Prothrombin Time 12.7 seconds 11.9-14.5 03/30/2017 6:23pm 03/30/2017 7: 41pm Prothromb Time International Ratio 0.91 03/30/2017 6:23pm 2017 7:41pm Oral Anticoagulant Therapy INR Values: 1. Low Intensity Therapy 1.5 - 2.0 2. Moderate Intensity Therapy 2.0 - 3.0 3. High Intensity Therapy(1) 2.5 - 3.5 4. High Intensity Therapy(2) 3.0 - 4.0 5. Panic Value INR > 5.0 Activated Partial Thromboplast Time 32.6 seconds 23.8-35.5 03/30/2017 6: 23pm 03/30/2017 7:41pm Urine Color YELLOW YELLOW 03/30/2017 4:17pm 03/30/2017 4:49pm Urine Clarity HAZY CLEAR 03/30/2017 4:17pm 03/30/2017 4:49pm Urine Specific [place] 1.025 1.010-1.025 03/30/2017 4:17pm 2017 4:49pm Urine pH 6 5 - 7 03/30/2017 4:17pm 03/30/2017 4:49pm Urine Leukocyte Esterase 2+ H NEGATIVE 03/30/2017 4:17pm 03/30/2017 4: 49pm Urine Nitrite NEGATIVE NEGATIVE 03/30/2017 4:17pm 03/30/2017 4:49pm Urine Protein 2+ H NEGATIVE 03/30/2017 4:17pm 03/30/2017 4:49pm Urine Glucose (UA) NEGATIVE NEGATIVE 03/30/2017 4:17pm 03/30/2017 4: 49pm Urine Ketones NEGATIVE NEGATIVE 03/30/2017 4:17pm 03/30/2017 4:49pm Urine Urobilinogen 1 mg/dL 0.2 - 1 03/30/2017 4:17pm 03/30/2017 4:49pm Urine Bilirubin 1+ H NEGATIVE 03/30/2017 4:17pm 03/30/2017 4:49pm Confirmatory test currently unavailable. False positive results may occur. Urine Blood 3+ H NEGATIVE 03/30/2017 4:17pm 03/30/2017 4:49pm Urine WBC 11-20 /HPF H 0-5 03/30/2017 4:17pm 03/30/2017 5:12pm Urine RBC 11-20 /HPF H 0-5 03/30/2017 4:17pm 03/30/2017 5:12pm Urine Bacteria FEW /HPF NONE 03/30/2017 4:17pm 03/30/2017 5:12pm Urine Epithelial Cells FEW /LPF NONE 03/30/2017 4:17pm 03/30/2017 5: 12pm Urine Fine Granular Casts 1-5 H 0 03/30/2017 4:17pm 03/30/2017 5:12pm Sodium Level 142 mmol/L 136-145 04/01/2017 6:20am 04/01/2017 7:38am Potassium Level 3.8 mmol/L 3.5-5.1 04/01/2017 6:20am 04/01/2017 7:38am Chloride Level 109 mmol/L H 98-107 04/01/2017 6:20am 04/01/2017 7:38am Influenza Virus Types A,B Antigen NEGATIVE NEGATIVE 03/30/2017 4:22pm 03/30/2017 5:08pm Carbon Dioxide Level 24 mmol/L 22-29 04/01/2017 6:20am 04/01/2017 7: 38am Anion Gap 12.8 mmol/L 8-16 04/01/2017 6:20am 04/01/2017 7:38am Blood Urea Nitrogen 11 mg/dL 7-04/01/2017 6:20am 04/01/2017 7:38am Creatinine 1.36 mg/dL H 0.72-1.25 04/01/2017 6:20am 04/01/2017 7:38am BUN/Creatinine Ratio 8 6-25 04/01/2017 6:20am 04/01/2017 7:38am Estimat Glomerular Filtration Rate 51 ML/MIN L 60- 04/01/2017 6:20am 06/2017 7:38am Ranges were taken from the National Kidney Disease Education Program and the National Kid[employer] Foundation literature. Reference ranges: 60 or greater: Normal 16-59 (for 3 consecutive months): Chronic kidney disease 15 or less: Kidney failure Glucose Level 84 mg/dL 74-118 04/01/2017 6:20am 04/01/2017 7:38am Calcium Level 8.8 mg/dL 8.4-10.2 04/01/2017 6:20am 04/01/2017 7:38am Magnesium Level 2.6 MG/DL H 1.3-2.1 03/30/2017 6:23pm 03/30/2017 7:46pm Total Bilirubin 0.6 mg/dL 0.2-1.2 03/31/2017 6:47am 03/31/2017 8:38am Aspartate Amino Transf (AST/SGOT) 20 IU/L 5-34 03/31/2017 6:47am 2017 8:38am Alanine Aminotransferase (ALT/SGPT) 15 IU/L 0-55 03/31/2017 6:47am 05/2017 8:38am Total Protein 7.0 g/dL 6.5-8.1 03/31/2017 6:47am 03/31/2017 8:38am Albumin 3.4 g/dL L 3.5-5.0 03/31/2017 6:47am 03/31/2017 8:38am Globulin 3.6 g/dL H 2.3-3.5 03/31/2017 6:47am 03/31/2017 8:38am Albumin/Globulin Ratio 0.9 0.8-2.0 03/31/2017 6:47am 03/31/2017 8: 38am Alkaline Phosphatase 78 IU/L 40-150 03/31/2017 6:47am 03/31/2017 8: 38am Triglycerides Level 132 MG/DL 0-149 03/31/2017 6:47am 03/31/2017 8: 38am Cholesterol Level 166 MD/DL 0-199 03/31/2017 6:47am 03/31/2017 8:38am Less than 200 mg/dL Low Risk 201 - 239 mg/dL Borderline Risk 240 mg/dl and greater High Risk LDL Cholesterol 103 MG/DL 60-130 03/31/2017 6:47am 03/31/2017 8:38am HDL Cholesterol 37 MG/DL L 40-60 03/31/2017 6:47am 03/31/2017 8:38am Cholesterol/HDL Ratio 4.5 3.9-4.7 03/31/2017 6:47am 03/31/2017 8: 38am Creatine Kinase 71 IU/L 30-200 03/31/2017 3:35pm 03/31/2017 5:02pm Creatine Kinase MB 1.40 ng/mL 0.00-5.00 03/31/2017 3:35pm 03/31/2017 5: 09pm Troponin I 0.004 ng/mL 0-0.300 03/31/2017 3:35pm 03/31/2017 5:09pm Microbiology Results Procedure Source Organism/Result Collection Date/Time Result Date/Time Result Status Blood Culture Blood STAPHYLOCOCCUS SP COAG NEG 02/21/2017 4:05pm 2017 10:59am Final Blood Culture Blood NO GROWTH AFTER 5 DAYS, FINAL REPORT 02/23/2017 10: 10am 02/28/2017 10:21am Final Procedures Procedure Status Date Provider(s) Cystoscopy with retrograde pyelography Completed 02/25/[address] of abdomen and pelvis without contrast Active 02/21/17 YVETTE GALLARDO MD Computed tomography of chest with contrast Active 03/30/[address] of abdomen and pelvis without contrast Active 03/31/17 NATHANIEL ULLOA MD Computed tomography angiography of abdomen and pelvis without then withcontrast Active 04/01/17 NATHANIEL ULLOA MD Encounters Encounter Location Arrival/Admit Date Discharge/Depart Date Attending Provider Discharged Inpatient [facility] 04/02/17 9:58am 04/04/17 3:37pm NATHANIEL ULLOA MD Discharged Inpatient [facility] 02/23/17 2:20pm 03/01/17 3:57pm NATHANIEL ULLOA MD
[2017-07-02] MEDS ORDERED: CEFTRIAXONE SOD 1 GM VIAL IV SCH ×3 (11:00→15:45)
[2017-07-02 11:19] LABS: BASOPHILS % 0.4 % (0.0-1.0); EOSINOPHILS % 0.3 % (0.0-6.0); HEMATOCRIT 37.4 % (38.2-49.6); HEMOGLOBIN 12.1 g/dL (14.0-18.0); LYMPHOCYTES # (AUTO) 1.3 (1.0-3.2); LYMPHOCYTES % 12.4 % (18.0-39.1); MEAN CORPUSCULAR HEMOGLOBIN 30.5 pg (28-32); MEAN CORPUSCULAR HGB CONC 32.4 g/dL (31-35); MEAN CORPUSCULAR VOLUME 94.2 fL (81-99); MONOCYTES # (AUTO) 1.4 (0.2-0.8); MONOCYTES % 13.7 % (4.4-11.3); NEUTROPHILS # (AUTO) 7.5 (2.1-6.9); NEUTROPHILS % 72.8 % (38.7-80.0); PLATELET COUNT 182 x10e3/uL (140-360); RED BLOOD COUNT 3.97 x10e6/uL (4.3-5.7); RED CELL DISTRIBUTION WIDTH 13.6 % (11.7-14.4)
--- NOTE | 2017-07-02 11:35 | Diagnostic Imaging Report ---
PROCEDURE:CHEST SINGLE (PORTABLE) TECHNIQUE:Portable AP chest INDICATION:UTI; shortness of breath COMPARISON:[facility], CT, CT CHEST W, 03/30/2017, 20:21. [facility], DX, CHEST SINGLE (PORTABLE), 03/30/2017, 17:04. FINDINGS: Low lung volumes bibasilar air space opacity. Nodular pleural calcification seen on the prior study is not conspicuous. Prominent cardiac silhouette secondary to technique and positioning. Intact skeleton. CONCLUSION: Low lung volume with resulting atelectasis. Superimposed pneumonia or aspiration is difficult to exclude given the extent of volume loss. Consider 2 view chest radiograph is additional clinical concern. Dictated by: Filipe Aguirre M.D. on 07/02/2017 at 11:36 Electronically approved by: Filipe Aguirre M.D. on 07/02/2017 at 11:36
[2017-07-02 11:38] LABS: ALANINE AMINOTRANSFERASE 42 IU/L (0-55); ALBUMIN/GLOBULIN RATIO 0.6 (0.8-2.0); ALKALINE PHOSPHATASE 99 IU/L (40-150); ANION GAP 15.3 mmol/L (8-16); BLOOD UREA NITROGEN 21 mg/dL (7-26); BUN/CREATININE RATIO 15 (6-25); CALCIUM 10.2 mg/dL (8.4-10.2); CARBON DIOXIDE 21 mmol/L (22-29); CHLORIDE 107 mmol/L (98-107); CREATINE KINASE 100 IU/L (30-200); CREATININE, SERUM 1.43 mg/dL (0.72-1.25); EST GLOMERULAR FILTRATION RATE 48 ML/MIN (60-); GLUCOSE 80 mg/dL (74-118); MAGNESIUM 2.2 MG/DL (1.3-2.1); POTASSIUM 4.3 mmol/L (3.5-5.1); SODIUM 139 mmol/L (136-145)
[2017-07-02 11:41] LABS: INR 1.21; PROTHROMBIN TIME 14.4 seconds (11.9-14.5)
[2017-07-02 11:42] LABS: PARTIAL THROMBOPLASTIN TIME 36.7 seconds (23.8-35.5)
[2017-07-02 12:00] LABS: THYROID STIMULATING HORMONE 0.808 uIU/mL (0.350-4.940)
[2017-07-02] MEDS ORDERED: SODIUM CHLORIDE 0.9% 500ML 500 ML ONE (12:54)
--- NOTE | 2017-07-02 13:35 | Diagnostic Imaging Report ---
PROCEDURE:CHEST 2 VIEWS TECHNIQUE:PA and lateral chest INDICATION:Shortness of breath COMPARISON:[facility] [place], DX, CHEST SINGLE (PORTABLE), 07/02/2017, 11:15. Patients [facility] [place], CT, CTA ABD/PELVIS WOW, 04/01/2017, 17:20. FINDINGS: Low lung volume. Lungs are otherwise clear. Upper limits of normal heart size for technique, with tortuous thoracic aorta. Intact skeleton. Indwelling ureteral stent. CONCLUSION: No acute abnormality. Dictated by: Filipe Aguirre M.D. on 07/02/2017 at 13:37 Electronically approved by: Filipe Aguirre M.D. on 07/02/2017 at 13:37
[2017-07-02] MEDS ORDERED: SODIUM CHLORIDE 0.9% 1000ML 1,000 ML IV ONE (13:45)
[2017-07-02 14:59] LABS: BILIRUBIN,URINE NEGATIVE (NEGATIVE); CLARITY,URINE SL CLOUDY (CLEAR); COLOR,URINE YELLOW (YELLOW); KETONES,URINE 1+ (NEGATIVE); LEUKOCYTE ESTERASE ,URINE 1+ (NEGATIVE); NITRITE,URINE NEGATIVE (NEGATIVE); PROTEIN,URINE DIPSTICK 2+ (NEGATIVE); URINE UROBILINOGEN 0.2 mg/dL (0.2 - 1)
[2017-07-02 15:00] LABS: WBC,URINE (MAN) 21-50 /HPF (0-5)
[2017-07-02 15:01] LABS: BACTERIA,URINE FEW /HPF
[2017-07-02] MEDS ORDERED: SODIUM CHLORIDE 0.9% 1000ML 1,000 ML IV SCH (15:45)
[2017-07-02 22:29] VITALS: BP 154/85
[2017-07-02 23:00] VITALS: BP 154/85
[2017-07-02] MEDS: ACETAMINOPHEN 325 MG TAB PO PRN (23:54)
[2017-07-03] MEDS: SODIUM CHLORIDE 0.9% 1000ML 1,000 ML IV SCH ×3 (01:13→19:51)
[2017-07-03] MEDS: CEFTRIAXONE SOD 1 GM VIAL IV SCH ×2 (04:47→16:50)
[2017-07-03 06:24] LABS: BASOPHILS % 0.4 % (0.0-1.0); EOSINOPHILS # (AUTO) 0.1 (0.0-0.4); EOSINOPHILS % 0.5 % (0.0-6.0); HEMATOCRIT 35.5 % (38.2-49.6); HEMOGLOBIN 11.5 g/dL (14.0-18.0); LYMPHOCYTES # (AUTO) 1.4 (1.0-3.2); LYMPHOCYTES % 13.6 % (18.0-39.1); MEAN CORPUSCULAR HEMOGLOBIN 30.3 pg (28-32); MEAN CORPUSCULAR HGB CONC 32.4 g/dL (31-35); MEAN CORPUSCULAR VOLUME 93.7 fL (81-99); MONOCYTES # (AUTO) 1.5 (0.2-0.8); NEUTROPHILS # (AUTO) 7.5 (2.1-6.9); NEUTROPHILS % 71.2 % (38.7-80.0); PLATELET COUNT 218 x10e3/uL (140-360); RED BLOOD COUNT 3.79 x10e6/uL (4.3-5.7); RED CELL DISTRIBUTION WIDTH 13.7 % (11.7-14.4)
[2017-07-03 06:57] LABS: ANION GAP 11.8 mmol/L (8-16); CALCIUM 9.5 mg/dL (8.4-10.2); CREATININE, SERUM 1.19 mg/dL (0.72-1.25); POTASSIUM 3.8 mmol/L (3.5-5.1)
[2017-07-03 08:25] VITALS: BP 144/81
--- NOTE | 2017-07-03 09:49 | History and Physical ---
CHIEF COMPLAINT: Disoriented, recurrent fall and progressive decline and weakness. HISTORY: Patient is a 77-year-old male who is at baseline with multiple extensive medical problems. More importantly, the patient is declining and falling at home. He does have significant dementia and was hospitalized back in March. The patient came in this time with scrotal and penile redness consistent with yeast infection. He was very uncared for down in the groin area. The patient has urinary incontinence. Pires catheter placed now. The patient is admitted for further treatment and most likely will need some discharge planning. 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 PAST SURGICAL HISTORY: Ureteral stent. SOCIAL HISTORY: The patient lives with his . ALLERGIES: NO KNOWN ALLERGIES. HOME MEDICATIONS: List will be reviewed. REVIEW OF SYSTEMS: Difficult to obtain. Patient is demented, but he is awake. He is not in any distress. PHYSICAL EXAMINATION HEENT: Normocephalic, atraumatic and anicteric. NECK: Supple grossly. PULMONARY: Diminished breath sounds. CARDIOVASCULAR: Regular rate and rhythm. ABDOMEN: Soft. Groin area with penile redness. Scrotal redness. Pires catheter in place. EXTREMITIES: No cyanosis or edema. NEUROLOGIC: Dementia but awake and moving all extremities. LABORATORY: Reviewed. WBC is 10.3, hemoglobin 12.1, hematocrit 37.4, and platelets are 182,000. Coagulation is normal. Urinalysis with 1+ leukocyte esterase, few bacteria, wbcs of 50, and cloudy urine. IMPRESSION 1. Candidiasis of the groin area, penile and groin skin area secondary to urinary incontinence. 2. Urinary tract infection. 3. Urinary incontinence. 4. Baseline dementia. 5. Displacement problem. PLAN: Antibiotics and antifungal. Home medications. Personal hygiene care. Will consult psychotherapist social worker. The patient is otherwise stable at this time. Job#: [id number] [place]
[2017-07-03] MEDS: FLUCONAZOLE 200 MG/100 ML 100 ML IV SCH (12:03)
[2017-07-03 12:14] VITALS: BP 116/71
[2017-07-03 16:00] VITALS: BP 143/86
[2017-07-03 17:50] VITALS: BP 144/81
[2017-07-03 19:25] VITALS: BP 136/77
[2017-07-03 19:51] VITALS: BP 136/77
[2017-07-04] VITALS (9 sets, daily range): BP systolic 114–140; BP diastolic 60–75
[2017-07-04] MEDS: SODIUM CHLORIDE 0.9% 1000ML 1,000 ML IV SCH ×2 (02:25→15:59)
[2017-07-04] MEDS: CEFTRIAXONE SOD 1 GM VIAL IV SCH ×2 (04:21→15:58)
[2017-07-04 06:57] LABS: FOLATE 11.8 ng/mL (7.0-15.4)
[2017-07-04] MEDS: SERTRALINE HCL 50 MG TAB PO SCH (09:00)
[2017-07-04] MEDS: MIDODRINE HCL 5 MG TABLET PO SCH (09:00)
[2017-07-04] MEDS: FLUCONAZOLE 200 MG/100 ML 100 ML IV SCH (09:30)
[2017-07-04] MEDS: CYANOCOBALAMIN INJ 1,000 MCG/ML VIAL IM SCH (09:53)
[2017-07-04] MEDS: ACETAMINOPHEN 325 MG TAB PO PRN (21:19)
[2017-07-05] MEDS: CEFTRIAXONE SOD 1 GM VIAL IV SCH ×2 (03:59→17:57)
[2017-07-05] MEDS: SODIUM CHLORIDE 0.9% 1000ML 1,000 ML IV SCH ×2 (04:11→18:25)
[2017-07-05 04:20] VITALS: BP 134/71
[2017-07-05] MEDS: ACETAMINOPHEN 325 MG TAB PO PRN (04:25)
[2017-07-05 06:12] LABS: BASOPHILS % 0.4 % (0.0-1.0); EOSINOPHILS # (AUTO) 0.2 (0.0-0.4); EOSINOPHILS % 2.1 % (0.0-6.0); HEMATOCRIT 30.8 % (38.2-49.6); HEMOGLOBIN 10.1 g/dL (14.0-18.0); LYMPHOCYTES # (AUTO) 1.1 (1.0-3.2); LYMPHOCYTES % 11.4 % (18.0-39.1); MEAN CORPUSCULAR HEMOGLOBIN 30.1 pg (28-32); MEAN CORPUSCULAR HGB CONC 32.8 g/dL (31-35); MEAN CORPUSCULAR VOLUME 91.9 fL (81-99); MONOCYTES % 10.9 % (4.4-11.3); NEUTROPHILS % 74.9 % (38.7-80.0); PLATELET COUNT 240 x10e3/uL (140-360); RED BLOOD COUNT 3.35 x10e6/uL (4.3-5.7); RED CELL DISTRIBUTION WIDTH 13.8 % (11.7-14.4)
[2017-07-05 06:37] LABS: ANION GAP 11.3 mmol/L (8-16); BLOOD UREA NITROGEN 14 mg/dL (7-26); BUN/CREATININE RATIO 13 (6-25); CARBON DIOXIDE 20 mmol/L (22-29); CHLORIDE 110 mmol/L (98-107); CREATININE, SERUM 1.06 mg/dL (0.72-1.25); EST GLOMERULAR FILTRATION RATE > 60 ML/MIN (60-); GLUCOSE 104 mg/dL (74-118); POTASSIUM 3.3 mmol/L (3.5-5.1); SODIUM 138 mmol/L (136-145)
[2017-07-05 08:00] VITALS: BP 120/81
[2017-07-05] MEDS: FLUCONAZOLE 200 MG/100 ML 100 ML IV SCH (10:18)
[2017-07-05] MEDS: SERTRALINE HCL 50 MG TAB PO SCH (10:18)
[2017-07-05] MEDS: MIDODRINE HCL 5 MG TABLET PO SCH (10:18)
[2017-07-05] MEDS: CYANOCOBALAMIN INJ 1,000 MCG/ML VIAL IM SCH (10:18)
[2017-07-05 16:00] VITALS: BP 129/73
[2017-07-05 20:00] VITALS: BP 122/61
[2017-07-06] VITALS (7 sets, daily range): BP systolic 99–145; BP diastolic 55–80
[2017-07-06] MEDS: CEFTRIAXONE SOD 1 GM VIAL IV SCH ×2 (04:54→16:03)
[2017-07-06] MEDS: SODIUM CHLORIDE 0.9% 1000ML 1,000 ML IV SCH ×3 (05:00→21:33)
[2017-07-06] MEDS: ACETAMINOPHEN 325 MG TAB PO PRN (06:29)
[2017-07-06] MEDS: CYANOCOBALAMIN INJ 1,000 MCG/ML VIAL IM SCH (08:51)
[2017-07-06] MEDS: FLUCONAZOLE 200 MG/100 ML 100 ML IV SCH (08:55)
[2017-07-06] MEDS: SERTRALINE HCL 50 MG TAB PO SCH (08:55)
[2017-07-06] MEDS: MIDODRINE HCL 5 MG TABLET PO SCH (08:55)
[2017-07-07 00:29] VITALS: BP 126/76
[2017-07-07 04:00] VITALS: BP 121/76
[2017-07-07] MEDS: CEFTRIAXONE SOD 1 GM VIAL IV SCH ×2 (04:36→16:29)
[2017-07-07 08:00] VITALS: BP 129/76
[2017-07-07] MEDS: SERTRALINE HCL 50 MG TAB PO SCH (08:47)
[2017-07-07] MEDS: MIDODRINE HCL 5 MG TABLET PO SCH (08:47)
[2017-07-07] MEDS: CYANOCOBALAMIN INJ 1,000 MCG/ML VIAL IM SCH (08:47)
[2017-07-07] MEDS: ACETAMINOPHEN 325 MG TAB PO PRN ×2 (08:50→16:29)
[2017-07-07] MEDS: FLUCONAZOLE 200 MG/100 ML 100 ML IV SCH (08:52)
[2017-07-07 12:00] VITALS: BP 114/68
[2017-07-07] MEDS: SODIUM CHLORIDE 0.9% 1000ML 1,000 ML IV SCH ×2 (12:48→23:45)
[2017-07-07 16:00] VITALS: BP 115/72
[2017-07-07 20:00] VITALS: BP 117/64
[2017-07-08] VITALS (8 sets, daily range): BP systolic 116–138; BP diastolic 66–80
[2017-07-08] MEDS: CEFTRIAXONE SOD 1 GM VIAL IV SCH ×2 (04:43→15:57)
[2017-07-08] MEDS: ACETAMINOPHEN 325 MG TAB PO PRN ×2 (04:47→20:14)
[2017-07-08] MEDS: CYANOCOBALAMIN INJ 1,000 MCG/ML VIAL IM SCH (09:53)
[2017-07-08] MEDS: FLUCONAZOLE 200 MG/100 ML 100 ML IV SCH (09:53)
[2017-07-08] MEDS: MIDODRINE HCL 5 MG TABLET PO SCH (09:53)
[2017-07-08] MEDS: SERTRALINE HCL 50 MG TAB PO SCH (09:53)
[2017-07-08] MEDS: SODIUM CHLORIDE 0.9% 1000ML 1,000 ML IV SCH (15:57)
[2017-07-09] VITALS: BP 116/74
[2017-07-09] MEDS: SODIUM CHLORIDE 0.9% 1000ML 1,000 ML IV SCH ×2 (02:25→14:45)
[2017-07-09 04:00] VITALS: BP 135/81
[2017-07-09] MEDS: CEFTRIAXONE SOD 1 GM VIAL IV SCH ×2 (04:10→15:33)
[2017-07-09] MEDS: ACETAMINOPHEN 325 MG TAB PO PRN (06:45)
[2017-07-09 07:19] VITALS: BP 121/77
[2017-07-09] MEDS: FLUCONAZOLE 200 MG/100 ML 100 ML IV SCH (09:21)
[2017-07-09] MEDS: CYANOCOBALAMIN INJ 1,000 MCG/ML VIAL IM SCH (09:21)
[2017-07-09] MEDS: SERTRALINE HCL 50 MG TAB PO SCH (09:21)
[2017-07-09] MEDS: MIDODRINE HCL 5 MG TABLET PO SCH (09:21)
[2017-07-09 12:00] VITALS: BP 121/73
[2017-07-09 15:53] VITALS: BP 130/69
== END 2017-07-09 17:41 | disposition hospice, home (50) | DRG 872 ==
LOC: ER 10:22 → ERHOLD 18:19 → UNDOADMIN 18:19 → ERHOLD 18:45 → MED/SURG2 22:17
PROVIDERS: ADMIT Internal Medicine; ATTEND Internal Medicine
DX: A41.9 Sepsis, unspecified organism (principal); B37.49 Other urogenital candidiasis; N13.30 Unspecified hydronephrosis; N39.0 Urinary tract infection, site not specified; Z91.81 History of falling; E78.5 Hyperlipidemia, unspecified; Z85.46 Personal history of malignant neoplasm of prostate; N28.9 Disorder of kidney and ureter, unspecified; R53.1 Weakness; R32 Unspecified urinary incontinence; I25.10 Atherosclerotic heart disease of native coronary artery without angina pectoris; G30.9 Alzheimer's disease, unspecified; F02.80 Dementia in other diseases classified elsewhere, unspecified severity, without behavioral disturbance, psychotic disturbance, mood disturbance, and anxiety
CPT/HCPCS: 36415; 51700; 71045; 71046; 80048; 80053; 81001; 82550; 82553; 82607; 82746; 83036; 83605; 83735; 84443; 84484; 85025; 85610; 85730; 87040; 87086; 93005; 97139; 99284; J0696; J1450; J3420; J7030; J7040